=== PATIENT | male | born 1955 | race Caucasian/White ===

== ENCOUNTER 2020-03-21 10:07 | Emergency (ER) | payer OTHER ==
[2020-03-21 10:18] VITALS: RESP 18; TEMP 97.6
[2020-03-21] MEDS ORDERED: HYDROmorphone 0.5 MG/0.5 ML SYRINGE IVP STA (10:35)
[2020-03-21] MEDS ORDERED: KETOROLAC 15 MG/ML 1 ML VIAL IVP STA (10:35)
[2020-03-21] MEDS ORDERED: ONDANSETRON 4 MG/2 ML VIAL IVP STA (10:35)
[2020-03-21] MEDS ORDERED: SODIUM CHLORIDE 0.9% 2,000 ML IV STA (10:35)
[2020-03-21 11:29] LABS: Basophils # (A) 0.2 k/uL (0-0.2); Basophils % (A) 1 %; Eosinophils # (A) 0.3 k/uL (0-0.7); Eosinophils % (A) 2 %; HCT 50.4 % (39.0-53.0); HGB 17.4 gm/dL (13.0-17.5); Lymphocytes # (A) 2.3 k/uL (1.0-4.8); Lymphocytes % (A) 15 %; MCH 30.7 pg (25.0-35.0); MCHC 34.5 g/dL (31.0-37.0); MCV 88.8 fL (80.0-100.0); Mean Platelet Volume 7.7; Monocytes # (A) 0.9 k/uL (0-1.0); Monocytes % (A) 6 %; Neutrophils # (A) 11.6 k/uL (1.3-7.7); Neutrophils % (A) 75 %; Platelet Count 265 k/uL (150-450); RBC 5.68 m/uL (4.30-5.90); RDW 12.8 % (11.5-15.5); WBC 15.6 k/uL (3.8-10.6)
[2020-03-21 11:40] LABS: Calcium 9.2 mg/dL (8.4-10.2); Potassium 4.5 mmol/L (3.5-5.1); Total Bilirubin 0.8 mg/dL (0.2-1.3); Total Protein 6.7 g/dL (6.3-8.2)
--- NOTE | 2020-03-21 11:53 | CT ---
EXAMINATION TYPE: CT abdomen pelvis wo con DATE OF EXAM: 03/21/2020 COMPARISON: None INDICATION: Lt flank pain DLP: 600.8 mGycm, Automated exposure control for dose reduction was used. CONTRAST: 0 mL of Isovue 300. Study performed without Oral Contrast TECHNIQUE: Axial images were obtained from above the diaphragm to the pubic rami in the axial plane a t 5 mm thick sections. Reconstructed images are reviewed on the computer in the coronal plane. FINDINGS: Limited CT sections are obtained the lung bases. The lung bases are clear. CT ABDOMEN: Liver: Normal Spleen: Normal Pancreas: Normal Adrenal glands: The adrenal glands are normal. Gallbladder: Normal Kidneys: No masses are evident. There is a moderate left hydronephrosis No cysts are present. There is a 0.5 cm obstructing proximal left ureteral pelvic junction stone. No hydroureter is evident. Aorta: Vascular calcification is within the aorta. Inferior vena cava: Normal. CT PELVIS: Beam hardening artifact from left hip prosthesis is present. Loops of bowel within the abdomen and pelvis are normal. Study is without oral contrast limiting bowel evaluation. Appendix: Normal as visualized. Urinary bladder: Normal. Genitourinary structures: Prostate is prominent and contains calcification Osseous structures: No suspicious lytic or sclerotic lesions. Facet degenerative changes are within t he lumbar spine. IMPRESSIONS: 1. 0.5 cm obstructing proximal left ureteral vesicle junction stone with moderate left hydronephrosi s
[2020-03-21] MEDS ORDERED: TAMSULOSIN 0.4 MG CAP.ER.24H PO STA (12:09)
--- NOTE | 2020-03-21 12:09 | ED ---
Back Pain HPI - General Chief Complaint: Back Pain/Injury Stated Complaint: kidney/back pain Time Seen by Provider: 03/21/20 10:32 Source: patient, RN notes reviewed Limitations: no limitations - History of Present Illness Initial Comments: This a 65-year-old male presents emergency from chief complaint of left flank pain. Patient states his started this morning. Patient states it was sudden onset of pain nothing makes the pain feel better or worse. Patient's had severe nausea vomiting. Patient states she's has no history kidney stones he's never had any like this in the past. Denies any trauma no dysuria no noted hematuria or frequency no stiff and diarrhea constipation states he did have a bowel movement this morning which did not change his symptoms. Patient has normal drug ALLERGIES. - Related Data Home Medications Medication Instructions Recorded Confirmed Cholecalciferol [Vitamin D3 (25 2,000 unit PO DAILY 03/21/20 03/21/20 Mcg = 1000 Iu)] Famotidine 40 mg PO HS 03/21/20 03/21/20 Glucosam/Jamir-Msm1/C/Kahlil/Bosw 2 tab PO DAILY 03/21/20 03/21/20 [Fktxoiiorlh-Jageocmxeuy-ELY Tb] Vit C/E/Zn/Coppr/Lutein/Zeaxan 2 cap PO DAILY 03/21/20 03/21/20 [Preservision Areds 2 Softgel] Previous Rx's Medication Instructions Recorded HYDROcodone/APAP 7.5-325MG [[place] 1 tab PO Q6HR PRN 3 Days #12 tab 03/21/20 7.5-325] Ketorolac [Toradol] 10 mg PO Q8HR #15 tab 03/21/20 Ondansetron Odt [Zofran Odt] 4 mg PO Q8HR PRN #10 tab 03/21/20 Tamsulosin [Flomax] 0.4 mg PO DAILY #7 cap 03/21/20 Allergies Allergy/AdvReac Type Severity Reaction Status Date / Time No Known Allergies Allergy Verified 03/21/20 11:53 Review of Systems ROS Statement: Those systems with pertinent positive or pertinent negative responses have been documented in the HPI. ROS Other: All systems not noted in ROS Statement are negative. Past Medical History Past Medical History: No Reported History History of Any Multi-Drug Resistant Organisms: None Reported Past Surgical History: Orthopedic Surgery Past Psychological History: No Psychological Hx Reported Smoking Status: Never smoker Past Alcohol Use History: None Reported Past Drug Use History: None Reported General Exam Limitations: no limitations General appearance: alert, in no apparent distress Head exam: Present: atraumatic, normocephalic, normal inspection Eye exam: Present: normal appearance, PERRL, EOMI. Absent: scleral icterus, conjunctival injection, periorbital swelling ENT exam: Present: normal exam, normal oropharynx, mucous membranes moist Neck exam: Present: normal inspection, full ROM. Absent: tenderness, meningismus, lymphadenopathy Respiratory exam: Present: normal lung sounds bilaterally. Absent: respiratory distress, wheezes, rales, rhonchi, stridor Cardiovascular Exam: Present: regular rate, normal rhythm, normal heart sounds. Absent: systolic murmur, diastolic murmur, rubs, gallop, clicks GI/Abdominal exam: Present: soft, tenderness (Mild left-sided), normal bowel sergei nds. Absent: distended, guarding, rebound, rigid Back exam: Present: CVA tenderness (L). Absent: CVA tenderness (R) Neurological exam: Present: alert, oriented X3 Skin exam: Present: warm, dry, intact, normal color. Absent: rash Course Vital Signs 03/21/20 03/21/20 03/21/20 10:12 11:37 12:44 Temperature 97.6 F Pulse Rate 62 59 L 60 Respiratory 18 18 18 Rate Blood Pressure 194/109 142/82 127/71 O2 Sat by Pulse 96 99 98 Oximetry Medical Decision Making - Medical Decision Making 65-year-old presented for flank pain. Patient does have evidence of 5 mm UVJ stone. Patient's pain is improved. Patient be discharged in stable condition return parameters were discussed. - Lab Data Result diagrams: 03/21/20 11:11 03/21/20 11:11 Lab Results 03/21/20 03/21/20 03/21/20 Range/Units 11:11 11:11 12:53 WBC 15.6 H (3.8-10.6) k/uL RBC 5.68 (4.30-5.90) m/uL Hgb 17.4 (13.0-17.5) gm/dL Hct 50.4 (39.0-53.0) % MCV 88.8 (80.0-100.0) fL MCH 30.7 (25.0-35.0) pg MCHC 34.5 (31.0-37.0) g/dL RDW 12.8 (11.5-15.5) % Plt Count 265 (150-450) k/uL MPV 7.7 Neutrophils % 75 % Lymphocytes % 15 % Monocytes % 6 % Eosinophils % 2 % Basophils % 1 % Neutrophils # 11.6 H (1.3-7.7) k/uL Lymphocytes # 2.3 (1.0-4.8) k/uL Monocytes # 0.9 (0-1.0) k/uL Eosinophils # 0.3 (0-0.7) k/uL Basophils # 0.2 (0-0.2) k/uL Sodium 139 (137-145) mmol/L Potassium 4.5 (3.5-5.1) mmol/L Chloride 111 H (98-107) mmol/L Carbon Dioxide 21 L (22-30) mmol/L Anion Gap 7 mmol/L BUN 14 (9-20) mg/dL Creatinine 1.21 (0.66-1.25) mg/dL Est GFR (CKD-EPI)AfAm 74 (>60 ml/min/1.73 sqM) Est GFR (CKD-EPI)NonAf 64 (>60 ml/min/1.73 sqM) Glucose 117 H (74-99) mg/dL Calcium 9.2 (8.4-10.2) mg/dL Total Bilirubin 0.8 (0.2-1.3) mg/dL AST 21 (17-59) U/L ALT 17 (4-49) U/L Alkaline Phosphatase 68 (38-126) U/L Total Protein 6.7 (6.3-8.2) g/dL Albumin 4.0 (3.5-5.0) g/dL Amylase 83 (30-110) U/L Lipase 146 (23-300) U/L Urine Color Yellow Urine Appearance Clear (Clear) Urine pH 6.5 (5.0-8.0) Ur Specific [place] 1.016 (1.001-1.035) Urine Protein Negative (Negative) Urine Glucose (UA) Negative (Negative) Urine Ketones Negative (Negative) Urine Blood Moderate H (Negative) Urine Nitrite Negative (Negative) Urine Bilirubin Negative (Negative) Urine Urobilinogen <2.0 (<2.0) mg/dL Ur Leukocyte Esterase Negative (Negative) Urine RBC 119 H (0-5) /hpf Urine WBC 3 (0-5) /hpf Urine Bacteria Rare H (None) /hpf Hyaline Casts 1 (0-2) /lpf Urine Mucus Rare H (None) /hpf Disposition Clinical Impression: Ureteral calculi, Nausea & vomiting Disposition: HOME SELF-CARE Condition: Stable Instructions (If sedation given, give patient instructions): Kidney Stones (ED) Additional Instructions: Please return to the Emergency Department if symptoms worsen or any other concerns. Prescriptions: Tamsulosin [Flomax] 0.4 mg PO DAILY #7 cap HYDROcodone/APAP 7.5-325MG [[place] 7.5-325] 1 tab PO Q6HR PRN 3 Days #12 tab PRN Reason: Pain Ketorolac [Toradol] 10 mg PO Q8HR #15 tab Ondansetron Odt [Zofran Odt] 4 mg PO Q8HR PRN #10 tab PRN Reason: Nausea Is patient prescribed a controlled substance at d/c from ED?: Yes When asked, does pt state using other controlled substances?: No If prescribed controlled substance>3 days was MAPS reviewed?: Prescribed <3 Days If opioid is for acute pain is fill amount 7 days or less?: Yes If Rx opioid, was Start Talking consent form obtained?: Yes Referrals: Antwan Baker MD [Primary Care Provider] - 1-2 days Quincy Pozo MD [STAFF PHYSICIAN] - 1-2 days Time of Disposition: 13:24
[2020-03-21 12:45] VITALS: BP 127/71; PULSE 60
[2020-03-21 13:14] LABS: Appearance,Urine Clear (Clear); Bacteria,Urine Rare /hpf; Bilirubin,Urine Negative (Negative); Blood,Urine Moderate (Negative); Color,Urine Yellow; Glucose,Urine (UA) Negative (Negative); Hyaline Casts,Urine 1 /lpf (0-2); Ketones,Urine Negative (Negative); Leukocyte Esterase,Urine Negative (Negative); Mucus,Urine Rare /hpf; Nitrite,Urine Negative (Negative); PH, Urine 6.5 (5.0-8.0); Protein,Urine Negative (Negative); RBC,Urine 119 /hpf (0-5); Specific Gravity,Urine 1.016 (1.001-1.035); Urobilinogen,Urine <2.0 mg/dL (<2.0); WBC,Urine 3 /hpf (0-5)
[2020-03-21] MEDS ORDERED: HYDROcodone/APAP 7.5-325MG 1 EACH TAB PO ONE (13:27)
== END 2020-03-21 14:02 | disposition home or self-care (01) ==
LOC: EC 10:07
DX: N20.1 Calculus of ureter (principal); Z79.899 Other long term (current) drug therapy
CPT/HCPCS: 36415; 80053; 82150; 83690; 85025; 81001; 74176; 99284; 96374; 96375 ×2; 96361 ×2; J2405; J1885; J1170

== ENCOUNTER 2020-10-27 13:33 | Emergency (ER) | payer OTHER ==
[2020-10-27 13:38] VITALS: RESP 18; TEMP 97.4
[2020-10-27] MEDS ORDERED: HYDROmorphone 1 MG/ML 1 ML SYRINGE IVP STA (13:53)
[2020-10-27] MEDS ORDERED: ONDANSETRON 4 MG/2 ML VIAL IVP STA (13:53)
[2020-10-27] MEDS ORDERED: KETOROLAC 15 MG/ML 1 ML VIAL IVP STA (13:53)
[2020-10-27] MEDS ORDERED: SODIUM CHLORIDE 0.9% 1,000 ML IV STA (13:53)
--- NOTE | 2020-10-27 13:54 | ED ---
Abdominal Pain HPI - General Chief Complaint: Abdominal Pain Stated Complaint: Kidney Stones Time Seen by Provider: 10/27/20 14:03 Source: patient Mode of arrival: ambulatory Limitations: physical limitation - History of Present Illness Initial Comments: 65-year-old male past medical history of kidney stones presents emergency room with reported left-sided flank pain. Patient awoke this morning with 10/10 left flank pain which radiates around to his groin. Reports a history of similar pain in the past. Was seen here in March for similar complaint was diagnosed with a kidney stone. Was discharged home at that time a Kinards. States still had his prescription for the Kinards at home and therefore took one prior to coming to the emergency room. Patient also took a Zofran for nausea as he began having vomiting due to the significance of the pain. He denies hematuria, dysuria or increased frequency of voiding. Denies any anterior abdominal pain. No bowel complaints. Denies any chest pain or shortness of breath. No numbness, tingling or weakness in his legs. No alleviating, precipitating or modifying factors - Related Data Home Medications Medication Instructions Recorded Confirmed Cholecalciferol [Vitamin D3 (25 2,000 unit PO DAILY 03/21/20 03/21/20 Mcg = 1000 Iu)] Famotidine 40 mg PO HS 03/21/20 03/21/20 Glucosam/Jamir-Msm1/C/Kahlil/Bosw 2 tab PO DAILY 03/21/20 03/21/20 [Almeqnhbmjk-Twlexjpxtgr-JBP Tb] Vit C/E/Zn/Coppr/Lutein/Zeaxan 2 cap PO DAILY 03/21/20 03/21/20 [Preservision Areds 2 Softgel] Previous Rx's Medication Instructions Recorded HYDROcodone/APAP 7.5-325MG [[place] 1 tab PO Q6HR PRN 3 Days #12 tab 03/21/20 7.5-325] Ketorolac [Toradol] 10 mg PO Q8HR #15 tab 03/21/20 Ondansetron Odt [Zofran Odt] 4 mg PO Q8HR PRN #10 tab 03/21/20 Tamsulosin [Flomax] 0.4 mg PO DAILY #7 cap 03/21/20 HYDROcodone/APAP 5-325MG [[place] 5] 1 each PO Q6HR PRN #12 tab 10/27/20 Ketorolac [Toradol] 10 mg PO Q8HR #15 tab 10/27/20 Ondansetron Odt [Zofran Odt] 4 mg PO Q8HR PRN #15 tab 10/27/20 Tamsulosin [Flomax] 0.4 mg PO DAILY #7 cap 10/27/20 Allergies Allergy/AdvReac Type Severity Reaction Status Date / Time No Known Allergies Allergy Verified 10/27/20 13:39 Review of Systems ROS Statement: Those systems with pertinent positive or pertinent negative responses have been documented in the HPI. ROS Other: All systems not noted in ROS Statement are negative. Past Medical History Past Medical History: No Reported History Additional Past Medical History / Comment(s): KIDNEY STONES History of Any Multi-Drug Resistant Organisms: None Reported Past Surgical History: Orthopedic Surgery Past Psychological History: No Psychological Hx Reported Smoking Status: Never smoker Past Alcohol Use History: None Reported Past Drug Use History: None Reported General Exam Limitations: physical limitation General appearance: alert, in distress Head exam: Present: atraumatic, normocephalic, normal inspection Eye exam: Present: normal appearance, PERRL, EOMI. Absent: scleral icterus, conjunctival injection, periorbital swelling ENT exam: Present: normal exam, mucous membranes moist Neck exam: Present: normal inspection. Absent: tenderness, meningismus, lymphadenopathy Respiratory exam: Present: normal lung sounds bilaterally. Absent: respiratory distress, wheezes, rales, rhonchi, stridor Cardiovascular Exam: Present: regular rate, normal rhythm, normal heart sounds. Absent: systolic murmur, diastolic murmur, rubs, gallop, clicks GI/Abdominal exam: Present: soft, normal bowel sounds. Absent: distended, tenderness, guarding, rebound, rigid Extremities exam: Present: normal inspection, full ROM, normal capillary refill. Absent: tenderness, pedal edema, joint swelling, calf tenderness Back exam: Present: CVA tenderness (L) Neurological exam: Present: alert, oriented X3, CN II-XII intact Psychiatric exam: Present: normal affect, normal mood Skin exam: Present: warm, dry, intact, normal color. Absent: rash Course Vital Signs 10/27/20 10/27/20 10/27/20 13:35 14:31 15:40 Temperature 97.4 F L Pulse Rate 62 55 L 52 L Respiratory 18 18 18 Rate Blood Pressure 189/94 155/85 146/72 O2 Sat by Pulse 97 100 99 Oximetry Medical Decision Making - Medical Decision Making Upon arrival the patient was placed into room 15. He is actively vomiting in the trashcan. IV is place the patient was given 1 mg of Dilaudid and 15 mg of Toradol. Laboratory studies are conducted. Liter bolus of saline administered. Patient went over for a CT of his abdomen and pelvis. Laboratory studies reveal a white count 12.2. Urinalysis demonstrates large blood, greater than 182 red blood cells with rare bacteria. CT of the patient's abdomen and pelvis demonstrates a 6 mm stone at the UVJ. Associated hydronephrosis and hydr oureter. The patient is reevaluated and has had complete resolution of his pain. I did discuss diagnosis, different treatment options. The patient will be discharged home at this time with Toradol and Kinards for pain control. He will also be given Flomax and Zofran. Patient is to take the medications as directed. Strain all urine. He is given follow-up information for urology on- call. Return to the emergency room for any new or worsening symptoms. Strict return parameters discussed. Patient discharged home in stable condition - Lab Data Result diagrams: 10/27/20 14:03 10/27/20 14:03 Lab Results 10/27/20 10/27/20 10/27/20 Range/Units 14:03 14:03 14:03 WBC 12.2 H (3.8-10.6) k/uL RBC 5.77 (4.30-5.90) m/uL Hgb 17.9 H (13.0-17.5) gm/dL Hct 50.9 (39.0-53.0) % MCV 88.2 (80.0-100.0) fL MCH 31.0 (25.0-35.0) pg MCHC 35.2 (31.0-37.0) g/dL RDW 12.9 (11.5-15.5) % Plt Count 271 (150-450) k/uL MPV 7.4 Neutrophils % 69 % Lymphocytes % 19 % Monocytes % 6 % Eosinophils % 3 % Basophils % 1 % Neutrophils # 8.4 H (1.3-7.7) k/uL Lymphocytes # 2.3 (1.0-4.8) k/uL Monocytes # 0.8 (0-1.0) k/uL Eosinophils # 0.3 (0-0.7) k/uL Basophils # 0.1 (0-0.2) k/uL Sodium 140 (137-145) mmol/L Potassium 4.1 (3.5-5.1) mmol/L Chloride 109 H (98-107) mmol/L Carbon Dioxide 20 L (22-30) mmol/L Anion Gap 11 mmol/L BUN 15 (9-20) mg/dL Creatinine 1.03 (0.66-1.25) mg/dL Est GFR (CKD-EPI)AfAm 89 (>60 ml/min/1.73 sqM) Est GFR (CKD-EPI)NonAf 77 (>60 ml/min/1.73 sqM) Glucose 132 H (74-99) mg/dL Calcium 9.4 (8.4-10.2) mg/dL Total Bilirubin 0.6 (0.2-1.3) mg/dL AST 28 (17-59) U/L ALT 15 (4-49) U/L Alkaline Phosphatase 86 (38-126) U/L Total Protein 7.2 (6.3-8.2) g/dL Albumin 4.5 (3.5-5.0) g/dL Lipase 239 (23-300) U/L Urine Color Yellow Urine Appearance Clear (Clear) Urine pH 6.0 (5.0-8.0) Ur Specific [place] 1.016 (1.001-1.035) Urine Protein Trace H (Negative) Urine Glucose (UA) Negative (Negative) Urine Ketones Negative (Negative) Urine Blood Large H (Negative) Urine Nitrite Negative (Negative) Urine Bilirubin Negative (Negative) Urine Urobilinogen <2.0 (<2.0) mg/dL Ur Leukocyte Esterase Negative (Negative) Urine RBC >182 H (0-5) /hpf Urine WBC 2 (0-5) /hpf Urine Bacteria Rare H (None) /hpf Disposition Clinical Impression: Ureteral stone with hydronephrosis Disposition: HOME SELF-CARE Condition: Stable Instructions (If sedation given, give patient instructions): Kidney Stones (ED) Additional Instructions: Please follow-up with urologist in regards to your symptoms. Strain all urine. Return to the emergency room for any new or worsening symptoms to include fevers or inability to urinate Prescriptions: Tamsulosin [Flomax] 0.4 mg PO DAILY #7 cap HYDROcodone/APAP 5-325MG [[place] 5] 1 each PO Q6HR PRN #12 tab PRN Reason: Pain Ketorolac [Toradol] 10 mg PO Q8HR #15 tab Ondansetron Odt [Zofran Odt] 4 mg PO Q8HR PRN #15 tab PRN Reason: Nausea Is patient prescribed a controlled substance at d/c from ED?: Yes When asked, does pt state using other controlled substances?: No If prescribed controlled substance>3 days was MAPS reviewed?: Prescribed <3 Days If opioid is for acute pain is fill amount 7 days or less?: Yes If Rx opioid, was Start Talking consent form obtained?: Yes Referrals: Antwan Baker MD [Primary Care Provider] - 1-2 days Ephraim Vargas MD [STAFF PHYSICIAN] - 1-2 days Time of Disposition: 15:44
[2020-10-27 14:13] LABS: Basophils # (A) 0.1 k/uL (0-0.2); Basophils % (A) 1 %; Eosinophils # (A) 0.3 k/uL (0-0.7); Eosinophils % (A) 3 %; HCT 50.9 % (39.0-53.0); HGB 17.9 gm/dL (13.0-17.5); Lymphocytes # (A) 2.3 k/uL (1.0-4.8); Lymphocytes % (A) 19 %; MCHC 35.2 g/dL (31.0-37.0); MCV 88.2 fL (80.0-100.0); Mean Platelet Volume 7.4; Monocytes # (A) 0.8 k/uL (0-1.0); Monocytes % (A) 6 %; Neutrophils # (A) 8.4 k/uL (1.3-7.7); Neutrophils % (A) 69 %; Platelet Count 271 k/uL (150-450); RBC 5.77 m/uL (4.30-5.90); RDW 12.9 % (11.5-15.5); WBC 12.2 k/uL (3.8-10.6)
[2020-10-27 14:25] LABS: Albumin 4.5 g/dL (3.5-5.0); Calcium 9.4 mg/dL (8.4-10.2); Potassium 4.1 mmol/L (3.5-5.1); Total Bilirubin 0.6 mg/dL (0.2-1.3); Total Protein 7.2 g/dL (6.3-8.2)
[2020-10-27 14:29] LABS: Appearance,Urine Clear (Clear); Bacteria,Urine Rare /hpf; Bilirubin,Urine Negative (Negative); Blood,Urine Large (Negative); Color,Urine Yellow; Glucose,Urine (UA) Negative (Negative); Ketones,Urine Negative (Negative); Leukocyte Esterase,Urine Negative (Negative); Nitrite,Urine Negative (Negative); Protein,Urine Trace (Negative); RBC,Urine >182 /hpf (0-5); Specific Gravity,Urine 1.016 (1.001-1.035); Urobilinogen,Urine <2.0 mg/dL (<2.0); WBC,Urine 2 /hpf (0-5)
--- NOTE | 2020-10-27 14:34 | CT ---
EXAMINATION TYPE: CT abdomen pelvis wo con DATE OF EXAM: 10/27/2020 COMPARISON: 03/21/2020 HISTORY: Pain. Left side pain. CT DLP: mGycm Automated exposure control for dose reduction was used. Images obtained from the diaphragm to the floor the pelvis with no contrast. Lung bases are clear. There is pulmonary hyperinflation and flattening of the diaphragm. Heart size i s normal. There is no pericardial effusion. Liver spleen stomach pancreas gallbladder appear normal. The bile ducts are not dilated. There is no adrenal mass. There is left-sided hydronephrosis and hydroureter. There is 6 mm calculus at the left ureteral vesicle junction. Kidneys have normal size. Right ureter appears normal. The keyla dder distends smoothly. There is minimal prostate calcification. There is left hip prosthesis. There is no free fluid in the pelvis. There is no mesenteric edema. There is no ascites or free air. There is no bowel obstruction. Appendi x is not seen. The lumbar vertebra have normal alignment. There is narrowing at L2-3 disc with spur formation. Poste rior elements are intact. There is no compression fracture. The bony pelvis is intact. IMPRESSION: Obstructing calculus at the ureterovesical junction has migrated compared to last exam of 03/21/2020 f rom the renal pelvis. Calculus slightly increased in size. COPD.
[2020-10-27 15:40] VITALS: BP 146/72; PULSE 52
== END 2020-10-27 16:06 | disposition home or self-care (01) ==
LOC: EC 13:33
DX: N13.2 Hydronephrosis with renal and ureteral calculous obstruction (principal); J44.9 Chronic obstructive pulmonary disease, unspecified
CPT/HCPCS: 36415; 80053; 83690; 85025; 81001; 74176; 99284; 96374; 96375 ×2; 96361 ×2; J2405; J1170; J1885

== ENCOUNTER 2020-11-16 11:15 | Day surgery (SDC) | payer OTHER ==
[2020-11-13 14:33] VITALS: BMI 24.4
--- NOTE | 2020-11-15 09:08 | P.HPIHPCON ---
History of Present Illness H&P Date: 11/15/20 Chief Complaint: Left ureteral stone This is a 65-year-old male with history of a 6 mm left-sided distal ureteral stone, he symptomatic from his stone. Surgical options were discussed with him. Discussed with him the option of doing a left-sided ureteroscopy with holmium laser lithotripsy. Discussed with him the risk which includes but not limited to bleeding, infection, injury to the ureter. Discussed with him risk from anesthesia. He understood all the risk and agreed to proceed with left-sided ureteroscopy, with holmium laser lithotripsy, stone basketing and stent placement Consent for Procedure: I have explained the operation/procedure to the patient, including the risks, benefits, side effects, alternative therapies (including not receiving the proposed treatment or service), the likelihood of the patient achieving his/her goals, and potential recuperation problems for the procedure/sedation/analgesia, as well as any blood products, if indicated. I also explained to the patient the risks, benefits and side effects of the alternatives, as well as the risks related to not receiving the proposed procedure, care, treatment, or services. Past Medical History Past Medical History: GERD/Reflux Additional Past Medical History / Comment(s): KIDNEY STONES History of Any Multi-Drug Resistant Organisms: None Reported Past Surgical History: Joint Replacement Additional Past Surgical History / Comment(s): lt hip replacement, rotator cuff repair Past Anesthesia/Blood Transfusion Reactions: No Reported Reaction, Motion Sickness Smoking Status: Never smoker - Past Family History Mother Family Medical History: No Reported History Medications and Allergies Home Medications Medication Instructions Recorded Confirmed Type Cholecalciferol [Vitamin D3 (25 2,000 unit PO DAILY 03/21/20 11/13/20 History Mcg = 1000 Iu)] Famotidine 40 mg PO HS 03/21/20 11/13/20 History Glucosam/Jamir-Msm1/C/Kahlil/Bosw 2 tab PO DAILY 03/21/20 11/13/20 History [Qiggdtftkxj-Knphdjuhcuj-OUH Tb] HYDROcodone/APAP 7.5-325MG [[place] 1 tab PO Q6HR PRN 3 Days #12 tab 03/21/20 11/13/20 Rx 7.5-325] Vit C/E/Zn/Coppr/Lutein/Zeaxan 2 cap PO DAILY 03/21/20 11/13/20 History [Preservision Areds 2 Softgel] Ondansetron Odt [Zofran Odt] 4 mg PO Q8HR PRN #15 tab 10/27/20 11/13/20 Rx Tamsulosin [Flomax] 0.4 mg PO DAILY #7 cap 10/27/20 11/13/20 Rx Ketorolac [Toradol] 10 mg PO Q8HR PRN 11/13/20 11/13/20 History Loratadine [Claritin] 10 mg PO HS 11/13/20 11/13/20 History Allergies Allergy/AdvReac Type Severity Reaction Status Date / Time No Known Allergies Allergy Verified 11/13/20 14:24 Surgical - Exam - General well developed, well nourished, no distress, moderate pain - Eyes PERRL, normal ocular movement - ENT normal nares, normal mucosa - Respiratory normal expansion, normal respiratory effort - Abdomen Abdomen: soft, non tender Assessment and Plan Assessment: OR for left-sided ureteroscopy, with holmium laser lithotripsy stone basketing and stent placement
--- NOTE | 2020-11-16 11:33 | XR ---
EXAMINATION TYPE: XR KUB DATE OF EXAM: 11/16/2020 COMPARISON: CT 10/27/2020 HISTORY: Renal stones TECHNIQUE: One view abdominal series FINDINGS: The osseous structures are intact. The bowel gas pattern is nonspecific. Lung bases are clear. Ther e is a 5 mm calculus overlying the region of the bladder centrally. Postsurgical change involving the left hip with arthropathy of the right hip. No suspicious calcifications overlying the renal outline s. Degenerative changes spine. IMPRESSION: 1. No suspicious calcifications overlying the renal outline. 2. There is a 5 mm calculus centrally in the pelvis which may represent the ureteral calculus passing into the bladder.
[2020-11-16] MEDS ORDERED: ONDANSETRON 4 MG/2 ML VIAL ONE (12:04)
[2020-11-16] MEDS ORDERED: LIDOCAINE 1% (10MG/ML) FOR IV START INTRADERMA ONE (12:05)
[2020-11-16] MEDS ORDERED: LACTATED RINGERS 1,000 ML IV ONE ×2 (12:05→15:48)
[2020-11-16] MEDS ORDERED: DEXAMETHASONE SOD PHOSPHATE 4 MG/ML 1 ML VIAL IV ONE (12:07)
[2020-11-16] MEDS ORDERED: LIDOCAINE 1% INJ 10MG/ML (20 ML MDV) ONE (15:08)
[2020-11-16] MEDS ORDERED: PROPOFOL 10 MG/ML 20 ML VIAL IV ONE (15:08)
[2020-11-16] MEDS ORDERED: fentaNYL (PF) 50 MCG/ML 2 ML AMP ONE (15:08)
[2020-11-16] MEDS ORDERED: MIDAZOLAM 2 MG/2 ML VIAL ONE (15:08)
[2020-11-16] MEDS ORDERED: IOPAMIDOL-370 50ML BTL IRRIGATION ONE (15:36)
--- NOTE | 2020-11-16 15:54 | P.OP ---
Date of Procedure: 11/16/20 Preoperative Diagnosis: Left ureteral stone Postoperative Diagnosis: Same Procedure(s) Performed: Cystoscopy, left ureteroscopy, balloon dilation retrograde pyelogram, and removal of a bladder stone Implants: None Anesthesia: YESSI Surgeon: Riky Schmidt Estimated Blood Loss (ml): 1 Pathology: none sent (bladder stone) Condition: stable Disposition: PACU Indications for Procedure: This is a 65-year-old male with history of a 6 mm left-sided distal ureteral stone, he symptomatic from his stone. Surgical options were discussed with him. Discussed with him the option of doing a left-sided ureteroscopy with holmium laser lithotripsy. Discussed with him the risk which includes but not limited to bleeding, infection, injury to the ureter. Discussed with him risk from anesthesia. He understood all the risk and agreed to proceed with left-sided ureteroscopy, with holmium laser lithotripsy, stone basketing and stent placement Operative Findings: The left ureteral stone has passed into the bladder Description of Procedure: Patient was brought to the operating room, general anesthesia was induced. He was prepped and draped in sterile fashion and placed in dorsal lithotomy position. Cystoscopy fitted with a 21-[place] sheath was inserted per urethra, cystoscopy was performed which showed no abnormalities within the bladder. Of note patient had a moderately enlarged prostate. A stone was visualized in the bladder and irrigated out, the left ureteral orifice was edematous, consistent with recently passed stone. At this time the ureteroscope was withdrawn and a semirigid ureteroscope was inserted. I attempted to advance the ureteroscope through the ureteral orifice but patient had narrowing of the ureteral orifice. At this time the wire was advanced through the ureteroscope and the ureteroscope was withdrawn with the wire in place. Next the ureteral balloon dilator was passed over the wire, and the left UVJ was dilated under fluoroscopy. Next the semirigid ureteroscope was reinserted and advanced up the left ureteral orifice, the ureteroscope was advanced all the way up to the proximal ureter there was no evidence of stone. Retrograde pyelogram was performed through the scope which showed no filling defect within the kidney. Next pullback ureteroscopy was performed showed no ureteral stones or injury to the ureter. The bladder was emptied at the end of the case, there was minimal edema at the ureteral orifice, thus no stent was placed. Patient tolerated the procedure well was taken to PACU in stable condition
[2020-11-16 15:56] VITALS: TEMP 97.3
[2020-11-16 16:04] VITALS: RESP 16
[2020-11-16 16:56] VITALS: BP 157/91; PULSE 52
--- NOTE | 2020-11-19 12:52 | FL ---
EXAMINATION TYPE: FL urography retrograde DATE OF EXAM: 11/16/2020 COMPARISON: NONE HISTORY: Fluoroscopy TECHNIQUE: Fluoroscopy. FINDINGS: Fluoroscopic guidance was provided during procedure of 6 seconds. IMPRESSION: As Above.
== END 2020-11-16 17:19 | disposition home or self-care (01) ==
LOC: OR 11:15
PROVIDERS: ATTEND Urology
DX: N20.2 Calculus of kidney with calculus of ureter (principal); K21.9 Gastro-esophageal reflux disease without esophagitis
CPT/HCPCS: 52351; 82365; 74420; 74018; J1100; J0690; J2405; Q9967

== ENCOUNTER → 2022-02-10 | Outpatient (CLI) | payer OTHER ==
[2022-02-10 10:51] VITALS: BP 131/87; PULSE 61; RESP 18; TEMP 97.9
--- NOTE | 2022-02-10 14:43 | P.PAINPG ---
PQRS Measure Charge Sheet Comment: HISTORY OF PRESENT ILLNESS: 66 yr old male as a referral from [facility] presents today w severe and chronic LBP secondary to spondylosis, DDD and facet arthropathy without myelopathy for evaluation. Pt states his pain level is currently at 6/10 in intensity, constant, localized in the R mid to lower lumbar spine, burning in character w shooting towards the R hip and RLE. Pain is provoked by standing/ bending/ lifting. Pain is alleviated by medications (Lyrica, Motrin, Tylenol), PT 5 weeks which ended January 2022, chiropractic treatments for years but stopped in November 2021 due to MRI results, laying supine, use of a TENS unit in PT, repositioning and rest. PMH: GERD, Nephrolithiasis PSH: Uteroscopy/Lithotripsy/Stent Placement, L Hip Replacement, RCT Repair SH: Negative x 3 FH: Non contributory All: NKDA Meds: See list REVIEW OF ORGAN SYSTEMS: CONSTITUTIONAL: No fevers or chills. No recent weight loss. NEUROLOGICAL: + numbness and tingling along the distal extremities. No seizure disorders or headaches. MUSCULOSKELETAL: + pain PSYCHIATRIC: Denies current depression or suicidal thoughts. Physical Examinations : Constitutional : Cooperative , not in acute distress . Neurologic : Cranial nerve II to XII intact. No focal neurological deficits. Psychiatric : alert & oriented x 3. Matching mood & appropriate affect. Judgment & insight intact. Musculoskeletal : Cervical Spine Motor strength in the deltoid and biceps: Normal right side. Normal Left side Motor strength biceps and the wrist extensors: Normal right side . Normal left side Motor strength in the triceps muscle: Normal right side. Normal left side Deep tendon reflexes: Normal at the biceps. Normal at Brachioradialis. Normal at triceps Vertebral body tenderness to deep palpation over Cervical facet loading test: positive bilaterally Spurling test: positive bilaterally Neck distraction test: positive bilaterally Tylor sign: positive bilaterally Lumbar spine Motor strength lower extremities ,thigh and legs 5/5 Right side , 5/5 Left side Deep tendon reflexes : Normal Knee Jerk. Normal Ankle Jerk Vertebral body tenderness over L4 Lumbar facet Loading Test: positive Right / positive Left Range of motion of the lumbar spine Flexion 30 degrees, extension 10 degrees Straight Leg Raise test: Left/ Right positive at degree Purnima test: positive right / positive left. Severe tenderness over the Sacroiliac joint on the Right / Left sides Robertolen test: positive bilaterally Seated flexion test: positive bilaterally. Sacral spine : Severe tenderness over the Sacroiliac joint: right side / left side Range of motion: Flexion of the lumbar spine <60 degrees Range of motion: Extension of the lumbar spine <20 degrees Gaenslen's Test positive Sarabjit's Test positive Purnima test: positive right side / left side Thigh Thrust Test Sacral Thrust Test Imaging: MRI without contrast of the lumbar spine from 01/24/22 reviewed Assessment/ Plan : #Spondylosis, lumbar DDD Recommendation of R TF ERIN of 3L4. May need a series of injections, up to 3 within a six-month timeframe, for optimal pain relief. Risks, benefits of proced ure discussed and patient verbalized understanding. Admits to anti- coagulant use or medical history of diabetes. Protocol for discontinuation/ continuation of medications jacqui procedure discussed. All questions answered. I have spent greater than 30 minutes on patient care today. Dr Junior was available by phone for the evaluation of this patient. The time was used to review the medical records including relevant urine studies and Prescription history (MAPs), review of the available imaging, evaluation and examination of the patient, coordination of care with the medical staff and if applicable referring physicians, as well as creation of the medical record Home Medications: Ambulatory Orders Cholecalciferol [Vitamin D3 (25 Mcg = 1000 Iu)] 2,000 unit PO DAILY 03/21/20 Famotidine 40 mg PO HS 03/21/20 Glucosam/Jamir-Msm1/C/Kahlil/Bosw [Updimydfrri-Eutkrtuhabi-KMW Tb] 2 tab PO DAILY 03/21/20 HYDROcodone/APAP 7.5-325MG [[place] 7.5-325] 1 tab PO Q6HR PRN 3 Days #12 tab 03/21/20 Vit C/E/Zn/Coppr/Lutein/Zeaxan [Preservision Areds 2 Softgel] 2 cap PO DAILY 03/21/20 Ondansetron Odt [Zofran Odt] 4 mg PO Q8HR PRN #15 tab 10/27/20 Tamsulosin [Flomax] 0.4 mg PO DAILY #7 cap 10/27/20 Ketorolac [Toradol] 10 mg PO Q8HR PRN 11/13/20 Loratadine [Claritin] 10 mg PO HS 11/13/20 Ibuprofen 600 mg PO Q8H PRN #15 tab 11/16/20 Controlled Substance Measures - Controlled Substance Measures Is patient prescribed a controlled substance at discharge?: No
== END ==
LOC: PNWHC3 09:58
PROVIDERS: ATTEND Specialist
DX: M47.816 Spondylosis without myelopathy or radiculopathy, lumbar region (principal); M51.36 Other intervertebral disc degeneration, lumbar region; Z79.01 Long term (current) use of anticoagulants; E11.9 Type 2 diabetes mellitus without complications; K21.9 Gastro-esophageal reflux disease without esophagitis
CPT/HCPCS: 99211

== ENCOUNTER 2022-02-25 10:34 | Day surgery (SDC) | payer MEDICARE, BC ==
[2022-02-25 11:09] VITALS: TEMP 97.9
[2022-02-25] MEDS ORDERED: LACTATED RINGERS 1,000 ML IV ONE (11:13)
[2022-02-25] MEDS ORDERED: IOPAMIDOL M200 10 ML VIAL ONE (11:17)
[2022-02-25] MEDS ORDERED: DEXAMETHASONE SOD PHOSPHATE 10 MG/ML 1 ML VIAL ONE (11:17)
[2022-02-25] MEDS ORDERED: MIDAZOLAM 2 MG/2 ML VIAL ONE (11:17)
[2022-02-25] MEDS ORDERED: fentaNYL (PF) 50 MCG/ML 2 ML AMP ONE (11:17)
--- NOTE | 2022-02-25 11:32 | P.PCN ---
Date of Procedure: 02/25/22 Description of Procedure: PREOPERATIVE DIAGNOSIS: Lumbar radiculopathy POSTOPERATIVE DIAGNOSIS: Lumbar radiculopathy PROCEDURE 1. Transforaminal epidural steroid injection under fluoroscopic guidance right L3-L4 2. Lumbar epidurogram IMAGING Fluoroscopy was used, images where saved to the medical record ANESTHESIA: Medication Administered by: Nurse Sedation Type: Moderate sedation requested by patient Sedation Supervision start time: 1118 Sedation Supervision end time: 1129 PROCEDURE DESCRIPTION / TECHNIQUE: The patient was seen and identified in the preoperative area. Risks, benefits, complications, and alternatives were discussed with the patient. The patient agreed to proceed with the procedure and signed the consent, vital signs were stable prior to the procedure. Patient was taken to the OR and time out was completed. The patient was placed in the prone position on procedure table and a pillow was placed under the abdomen to reduce lumbar lordosis. The lumbosacral area was prepped and draped in the usual sterile fashion. Vital signs were closely monitored during the procedure. Conscious sedation was used. Using oblique fluoroscopy, the chin of the "Jose A dog" at the pedicle and the skin and deeper tissues just below was localized with 1% lidocaine. Subsequently, a 22-gauge 3.5-inch spinal needle was advanced under a tunneled view fluoroscopic guidance just underneath the chin of the "Jose A dog". Under lateral fluoroscopy, the needle was then advanced to the posterior border interforaminal space. After negative aspiration of CSF and blood and with no paresthesias, 1 mL of Omnipaque-240 contrast dye was injected excellent epidurogram. Subsequently, a solution totalling 2ml of dexamethasone and PFNS was injected after negative aspiration (total of 10mg of dexamethasone was used). The needle was removed intact. COMPLICATIONS: None DISPOSITION: The patient was placed in a supine position and transferred to the recovery area in a stable condition for observation. There was no evidence of lower extremity motor or sensory deficit after the procedure. Patient was disc harged from the recovery room after meeting discharge criteria. Home discharge instructions were given to the patient by the staff. The patient was reexamined prior to discharge. Follow up as directed.
[2022-02-25] MEDS ORDERED: IV FLUID CONTINUATION 800 ML IV ONE (11:35)
--- NOTE | 2022-02-25 11:40 | FL ---
EXAMINATION TYPE: FL guided pain mgmt statistic DATE OF EXAM: 02/25/2022 HISTORY: Fluoroscopy time 6 seconds of fluoroscopy provided. IMPRESSION: 1. Fluoroscopy time.
[2022-02-25 11:52] VITALS: BP 155/75; PULSE 51; RESP 20
== END 2022-02-25 12:05 | disposition home or self-care (01) ==
LOC: ORPAIN 10:34
PROVIDERS: ATTEND Hospitalist
DX: M54.16 Radiculopathy, lumbar region (principal)
CPT/HCPCS: 99152; 64483; J2250; J1100; J3010; Q9966

== ENCOUNTER → 2022-03-10 | Outpatient (CLI) | payer MEDICARE, BC ==
[2022-03-10 11:39] VITALS: BP 140/84; PULSE 64; RESP 18; TEMP 98.1
--- NOTE | 2022-03-10 15:37 | P.PAINPG ---
PQRS Measure Charge Sheet Comment: A 67 yr old male w at side with a history of severe and chronic low back pain secondary to lumbar DDD and spondylosis with facet arthropathy without myelopathy presents today for evaluation s/p R TFESI L3-L4. Pt states he experienced 25% pain relief x 2 wks s/p procedure. Pain level is currently at 9 /10 in intensity, constant, localized in the R lower lumbar spine, squeezing in character w shooting towards his R hip, R thigh and R foot. Pain is provoked by chiropractic treatments, repositioning and sitting from a standing position. Pain is alleviated with PT x 6 wks in Nov 2021, TENS unit use in PT, heat, ice, meds (Lyrica from Dr Yoo), topicals, reclining and rest. Interventional pain procedures completed include R TFESI L3-L4 Patient is currently on Lyrica Patient denies any side effects of the medication(s), denies excessive drowsiness or sleepiness, denies suicidal ideation and reports that the current pain medication is helping to control the pain and improve activities of daily living. Patient denies any motor or sensory deficits. Patient denies any fever or night sweats, denies any change in the bowel movements or urination. Physical Examination: -Constitutional: Cooperative. Not in acute distress . - Neurologic: Cranial nerve II to XII intact. No focal neurological deficits. - Psychatric: Alert & oriented x 3. Matching mood & appropriate affect. Judgment and insight intact. - Musculoskeletal: Cervical spine: Muscle bulk/ tone/ strength in the bilateral upper extremities normal Vertebral body tenderness to palpation over Spurling test positive Distraction test positive Facet loading test positive Thoracic spine Muscle bulk / tone/ strength in the bilateral paraspinal muscles normal Vertebral body tender to palpation over Facet loading test positive Lumbar spine: Motor bulk/ tone/ strength lower extremities , thigh and legs : 5/5 Deep tendon reflexes : Normal Knee Jerk. Normal Ankle Jerk . Vertebral body tenderness to palpation over Lumbar Facet Loading Test positive Straight Leg Raise: positive at 30 degrees right side/ left side Gaenslen's Test positive Sacral spine : Severe tenderness over the Sacroiliac joint: right side / left side Range of motion: Flexion of the lumbar spine <60 degrees Range of motion: Extension of the lumbar spine <20 degrees Gaenslen's Test positive Purnima test: positive right side / left side Thigh Thrust Test Sacral Thrust Test Assessment and plan: Chronic low back pain secondary to lumbar DDD, spondylosis with facet arthropathy without myelopathy Pt did not receive sufficient pain relief w ERIN. He will continue Lyrica and explore surgical treatment options w Dr Yoo and may return to this clinic on an as needed basis. I have spent less than 30 minutes on patient care today. Dr Junior was available by phone for the evaluation of this patient. The time was used to review the medical records including relevant urine studies and Prescription history (MAPs), review of the available imaging, evaluation and examination of the patient, coordination of care with the medical staff and if applicable referring physicians, as well as creation of the medical record PQRS Narrative: Hx Alcohol Use (MH) No Home Medications: Ambulatory Orders Cholecalciferol [Vitamin D3 (25 Mcg = 1000 Iu)] 2,000 unit PO DAILY 03/21/20 Famotidine 40 mg PO HS 03/21/20 Glucosam/Jamir-Msm1/C/Kahlil/Bosw [Fchzpnqwycc-Nckdiitelnk-PWX Tb] 2 tab PO DAILY 03/21/20 Vit C/E/Zn/Coppr/Lutein/Zeaxan [Preservision Areds 2 Softgel] 2 cap PO DAILY 03/21/20 Loratadine [Claritin] 10 mg PO HS 11/13/20 Ibuprofen 600 mg PO Q8H PRN #15 tab 11/16/20 Pregabalin [Lyrica] 150 mg PO BID 02/25/22 Controlled Substance Measures - Controlled Substance Measures Is patient prescribed a controlled substance at discharge?: No
== END ==
LOC: PNWHC3 10:52
PROVIDERS: ATTEND Specialist
DX: M47.816 Spondylosis without myelopathy or radiculopathy, lumbar region (principal); M51.36 Other intervertebral disc degeneration, lumbar region; G89.29 Other chronic pain
CPT/HCPCS: 99211

== ENCOUNTER → 2022-08-07 | Outpatient (CLI) | payer MEDICARE, BC ==
[2022-08-07 13:38] VITALS: BP 160/86; PULSE 57; RESP 18; TEMP 97.7
--- NOTE | 2022-08-07 14:18 | P.PAINPG ---
PQRS Measure Charge Sheet Comment: A 67 yr old male w at side with a history of severe and chronic LBP secondary to lumbar DDD and spondylosis with facet arthropathy without myelopathy presents today for LBP evaluation. Pt states he was mistaken at his R TFESI L3-L4 follow up visit and that he actually experienced 70% pain relief x 3 wks s/p procedure. Pain level is provoked at 10/10 in intensity, constant, localized in the lumbar spine, sharp in character w shooting towards the RLE. Pain is provoked by standing/ walking for period of 15 min or more. Pain is alleviated with PT x 6 wks which ended in Apr 2022, heat, ice, massage x 1 session which provided little benefit, medications, topical, reclining and rest. Interventional pain procedures completed include R TFESI L3-L4 (2021) Patient is currently on Lyrica, Ibu Patient denies any side effects of the medication(s), denies excessive drowsiness or sleepiness, denies suicidal ideation and reports that the current pain medication is helping to control the pain and improve activities of daily living. Patient denies any motor or sensory deficits. Patient denies any fever or night sweats, denies any change in the bowel movements or urination. Physical Examination: -Constitutional: Cooperative. Not in acute distress . - Neurologic: Cranial nerve II to XII intact. No focal neurological deficits. - Psychatric: Alert & oriented x 3. Matching mood & appropriate affect. Judgment and insight intact. - Musculoskeletal: Cervical spine: Muscle bulk/ tone/ strength in the bilateral upper extremities normal Vertebral body tenderness to palpation over Spurling test positive Distraction test positive Facet loading test positive TTP Thoracic spine Muscle bulk / tone/ strength in the bilateral paraspinal muscles normal Vertebral body tender to palpation over Facet loading test positive TTP Lumbar spine: Motor bulk/ tone/ strength lower extremities , thigh and legs : 5/5 Deep tendon reflexes : Normal Knee Jerk. Normal Ankle Jerk . Vertebral body tenderness to palpation over L4 Lumbar Facet Loading Test positive Straight Leg Raise: positive at 30 degrees right side/ left side Gaenslen's Test positive Sacral spine : Severe tenderness over the Sacroiliac joint: right side / left side Range of motion: Flexion of the lumbar spine <60 degrees Range of motion: Extension of the lumbar spine <20 degrees Gaenslen's Test positive right side / left side Purnima test: positive right side / left side Thigh Thrust Test positive right side / left side Sacral Thrust Test positive right side / left side Assessment and plan: Chronic LBP secondary to lumbar DDD, spondylosis with facet arthropathy without myelopathy Recommendation of R TFESI L3-4 #2. May need a series of injections for optimal pain relief. Risks, benefits of procedure discussed and pt verbalized understanding. Admits to anticoagulant use or medical history of diabetes. Protocol for discontinuation/ continuation of medications jacqui procedure discussed. All questions answered. I have spent less than 30 minutes on patient care today. Dr Junior was available by phone for the evaluation of this patient. The time was used to review the medical records including relevant urine studies and Prescription history (MAPs), review of the available imaging, evaluation and examination of the patient, coordination of care with the medical staff and if applicable referring physicians, as well as creation of the medical record PQRS Narrative: Hx Alcohol Use (MH) No Home Medications: Ambulatory Orders Cholecalciferol [Vitamin D3 (25 Mcg = 1000 Iu)] 2,000 unit PO DAILY 03/21/20 Famotidine 40 mg PO HS 03/21/20 Glucosam/Jamir-Msm1/C/Kahlil/Bosw [Kbrocfirboe-Yvfoynptyzg-CDQ Tb] 2 tab PO DAILY 03/21/20 Vit C/E/Zn/Coppr/Lutein/Zeaxan [Preservision Areds 2 Softgel] 2 cap PO DAILY 03/21/20 Loratadine [Claritin] 10 mg PO HS 11/13/20 Ibuprofen 600 mg PO Q8H PRN #15 tab 11/16/20 Pregabalin [Lyrica] 150 mg PO BID 3 Days #6 cap 03/10/22 Controlled Substance Measures - Controlled Substance Measures Is patient prescribed a controlled substance at discharge?: No
== END ==
LOC: PNWHC3 13:04
PROVIDERS: ATTEND Specialist
DX: M51.16 Intervertebral disc disorders with radiculopathy, lumbar region (principal); M47.26 Other spondylosis with radiculopathy, lumbar region; M48.061 Spinal stenosis, lumbar region without neurogenic claudication; G89.29 Other chronic pain
CPT/HCPCS: 99211

== ENCOUNTER 2022-08-28 07:38 | Day surgery (SDC) | payer MEDICARE, BC ==
[2022-08-26 09:10] VITALS: BMI 24.4
[~2022-08-28 07:38] MED LIST: LACTATED RINGERS 1,000 ML IV SCH; LIDOCAINE 1% (10MG/ML) FOR IV START INTRADERMA PRN
[2022-08-28 08:11] VITALS: TEMP 98.1
[2022-08-28] MEDS ORDERED: MIDAZOLAM 2 MG/2 ML VIAL ONE (08:54)
[2022-08-28] MEDS ORDERED: ROPIVACAINE 5 MG/ML 20 ML AMPULE ONE (08:54)
[2022-08-28] MEDS ORDERED: methylPREDNISolone ACETATE 40 MG/ML 1 ML VIAL ONE (08:54)
[2022-08-28] MEDS ORDERED: fentaNYL (PF) 50 MCG/ML 2 ML AMP ONE (08:54)
[2022-08-28] MEDS ORDERED: LACTATED RINGERS 1,000 ML IV ONE (09:03)
--- NOTE | 2022-08-28 09:03 | P.PCN ---
Date of Procedure: 08/28/22 Procedure(s) Performed: PREOPERATIVE DIAGNOSIS : 1- Lumbar spondylosis with Facet Arthropathy without myelopathy . 2- Lumber degenerative disc disease POSTOPERATIVE DIAGNOSIS: 1- Lumbar spondylosis with Facet Arthropathy without myelopathy . 2- Lumber degenerative disc disease PROCEDURE: Diagnostic Right L4 , and L5 medial branch block under fluoroscopy guidance(fluoroscopy images available in the radiology Department ) ( To target the facet joint between Right L5-S1 )# 1st ANESTHESIA:, moderate sedation with intravenous Versed 2 mg and Fentanyl 50 mcg. Sedation was started at 0 854 ,ended at 0859 EBL: Minimal COMPLICATION: None PROCEDURE INDICATION: Chronic low back pain secondary to Facet arthropathy unresponsive to conservative treatment. PROCEDURE DESCRIPTION: the patient was seen and identified in the preop holding area , risks and benefits and possible complications of the procedure and alternative were discussed with the patient, and the patient agreed to proceed with the procedure and signed the consent and vital signs monitored during the procedure and fluoroscopy was used to maximize the benefit and accuracy of the needle placement, and sedation was given to decrease patient anxiety, patient was taken to the procedure room and placed in prone position vital signs monitored in the back prepped with chlorhexidine X3 then under strict sterile technique using a right oblique fluoroscopy ,the junction of the transverse process and the superior articulating process of the right L4 , and L5 vertebra which corresponding to the fluoroscopy image of the eye of the Jose A dog on the block side for the medial branches and subsequently , after local infiltration of skin and subcu tissuies with Ropivacaine 0.5 % , one mL at each level ,then 22-gauge Quincke-type needles , 2 needle was used , each one of them placed at the junction of the base of the transverse process and the superior articular process at the appropriate level, and the needle was advanced until the periosteum contacted, needle placement confirmed with AP oblique and lateral view and after appropriate needle placement confirmed, and after negative aspiration for heme and CSF and there was no paresthesia 1 mL of Ropivacaine 0.5% mixed with 20 mg Depo-Medrol , then half mL injected at each level after negative aspiration the needle subsequently removed . At the end of the procedure and the needles removed and a bandage applied after the skin was cleaned the cleaning solution patient taken to recovery room in stable condition and monitors in the recovery room for 20-30 minutes and discharged home in stable condition after discharge criteria met and patient will follow up with the pain clinic in 2-4 weeks
[2022-08-28 09:07] VITALS: PULSE 58; RESP 18
[2022-08-28 09:21] VITALS: BP 152/88
--- NOTE | 2022-08-28 10:52 | FL ---
EXAMINATION TYPE: FL guided pain mgmt statistic DATE OF EXAM: 08/28/2022 HISTORY: Fluoroscopy time Total dose area product (DAP) in mGy*m? (or similar): 0.27264 IMPRESSION: 1. Fluoroscopy time.
== END 2022-08-28 09:35 | disposition home or self-care (01) ==
LOC: ORPAIN 07:38
PROVIDERS: ATTEND Specialist
DX: M51.36 Other intervertebral disc degeneration, lumbar region (principal); M47.816 Spondylosis without myelopathy or radiculopathy, lumbar region; G89.29 Other chronic pain
CPT/HCPCS: 64493

== ENCOUNTER → 2022-09-17 | Outpatient (CLI) | payer MEDICARE, BC ==
[2022-09-17 11:51] VITALS: BP 155/84; PULSE 54; RESP 18; TEMP 98.1
--- NOTE | 2022-09-17 14:51 | P.PAINPG ---
PQRS Measure Charge Sheet Comment: A 67 yr old male w at side with a history of severe and chronic LBP secondary to lumbar DDD and spondylosis with facet arthropathy without myelopathy presents today for evaluation s/p R MBB L3-L5 #1. Pt states he experienced 0 % pain relief x days s/p procedure. Pain level is provoked at 9/10 in intensity, constant, localized in the R lumbar spine, sharp in character w shooting towards the R knee. Pain is provoked by walking for periods of 20 min or over activity. Pain is alleviated with PT x 6 wks in Jan 2022, massage therapy x 1 session last mo, chiropractic treatments weekly since Apr 2022, heat, ice, medications, repositioning and rest. Interventional pain procedures completed include R MBB L3-L5 x1, R TFESI L5-S1 x1 Patient is currently on Ibu Patient denies any side effects of the medication(s), denies excessive drowsiness or sleepiness, denies suicidal ideation and reports that the current pain medication is helping to control the pain and improve activities of daily living. Patient denies any motor or sensory deficits. Patient denies any fever or night sweats, denies any change in the bowel movements or urination. Physical Examination: -Constitutional: Cooperative. Not in acute distress . - Neurologic: Cranial nerve II to XII intact. No focal neurological deficits. - Psychatric: Alert & oriented x 3. Matching mood & appropriate affect. Judgment and insight intact. - Musculoskeletal: Cervical spine: Muscle bulk/ tone/ strength in the bilateral upper extremities normal Vertebral body tenderness to palpation over Spurling test positive Distraction test positive Facet loading test positive TTP Thoracic spine Muscle bulk / tone/ strength in the bilateral paraspinal muscles normal Vertebral body tender to palpation over Facet loading test positive TTP Lumbar spine: Motor bulk/ tone/ strength lower extremities , thigh and legs : 5/5 Deep tendon reflexes : Normal Knee Jerk. Normal Ankle Jerk . Vertebral body tenderness to palpation over Mcdonough Test positive Lumbar Facet Loading Test positive Straight Leg Raise: positive at 30 degrees right side/ left side Gaenslen's Test positive Sacral spine : Severe tenderness over the Sacroiliac joint: right side / left side Range of motion: Flexion of the lumbar spine <60 degrees Range of motion: Extension of the lumbar spine <20 degrees Gaenslen's Test positive right side / left side Purnima test: positive right side / left side Thigh Thrust Test positive right side / left side Sacral Thrust Test positive right side / left side Assessment and plan: Chronic LBP secondary to lumbar DDD, spondylosis with facet arthropathy without myelopathy Recommendation of R paramedian ERIN L4-L5. May need a series of injections for optimal pain relief. Risks, benefits of procedure discussed and pt verbalized understanding. Admits to anticoagulant use or medical history of diabetes. Protocol for discontinuation/ continuation of medications jacqui procedure discussed. Minimal anesthesia provided, if clinically indicated, consisting of Versed and Fentanyl. All questions answered. I have spent less than 30 minutes on patient care today. Dr Junior was available by phone for the evaluation of this patient. The time was used to review the medical records including relevant urine studies and Prescription history (MAPs), review of the available imaging, evaluation and examination of the patient, coordination of care with the medical staff and if applicable referring physicians, as well as creation of the medical record PQRS Narrative: Hx Alcohol Use (MH) No Home Medications: Ambulatory Orders Cholecalciferol [Vitamin D3 (25 Mcg = 1000 Iu)] 2,000 unit PO DAILY 03/21/20 Famotidine 40 mg PO HS 03/21/20 Glucosam/Jamir-Msm1/C/Kahlil/Bosw [Tsvcgtkqxyh-Dbtpgcuvlpv-MPE Tb] 2 tab PO DAILY 03/21/20 Vit C/E/Zn/Coppr/Lutein/Zeaxan [Preservision Areds 2 Softgel] 2 cap PO DAILY 03/21/20 Loratadine [Claritin] 10 mg PO HS 11/13/20 Ibuprofen 600 mg PO Q8H PRN #15 tab 11/16/20 Alpha Lipoic Acid 600 mg PO DAILY 08/26/22 Atorvastatin [Lipitor] 10 mg PO HS 08/26/22 Losartan [Cozaar] 25 mg PO DAILY 08/26/22 Pregabalin [Lyrica] 150 mg PO DAILY 08/26/22 Controlled Substance Measures - Controlled Substance Measures Is patient prescribed a controlled substance at discharge?: No
== END ==
LOC: PNWHC3 11:04
PROVIDERS: ATTEND Specialist
DX: M51.36 Other intervertebral disc degeneration, lumbar region (principal); G89.29 Other chronic pain; M47.816 Spondylosis without myelopathy or radiculopathy, lumbar region
CPT/HCPCS: 99211

== ENCOUNTER 2022-10-21 08:53 | Day surgery (SDC) | payer MEDICARE, BC ==
[2022-10-15 11:57] VITALS: BMI 24.4
[~2022-10-21 08:53] MED LIST changes: -LIDOCAINE 1% (10MG/ML) FOR IV START INTRADERMA PRN
[2022-10-21 09:14] VITALS: TEMP 98.1
[2022-10-21] MEDS ORDERED: ROPIVACAINE 5 MG/ML 20 ML AMPULE ONE (09:21)
[2022-10-21] MEDS ORDERED: IOPAMIDOL M200 10 ML VIAL ONE (09:21)
[2022-10-21] MEDS ORDERED: TRIAMCINOLONE ACETONIDE 40 MG/ML 1 ML VIAL ONE (09:21)
--- NOTE | 2022-10-21 09:32 | P.PCN ---
Date of Procedure: 10/21/22 Surgeon: Erwin Arias Pathology: none sent Condition: stable Disposition: PACU Description of Procedure: PREOPERATIVE DIAGNOSIS: 1-Lumbar radiculopathy 2- Lumber Degenerative Disc Diseases. POSTOPERATIVE DIAGNOSIS: 1-Lumbar radiculopathy. 2-Lumbar Degenerative Disc Diseases PROCEDURE 1. Lumbar epidural steroid injection under fluoroscopic guidance at the L4-5 level in the right paramedian approach. 2. Lumbar epidurogram. ANESTHESIA: Local only with 1% lidocaine EBL: Minimal PROCEDURE INDICATION: The patient with low back pain and radiculitis symptoms unresponsive to conservative treatment. Fluoroscopy was used to optimize visualization of the needle placement and to maximize safety. PROCEDURE DESCRIPTION / TECHNIQUE: The patient was seen and identified in the preoperative area. Risks, benefits, complications including but not limited to infections ,bleeding ,allergic reaction to the medications ,nerve damage and not complete pain relief , and alternatives were discussed with the patient. The patient agreed to proceed with the procedure and signed the consent. IV was started, and vital signs were stable. Patient was taken to the OR and time out was completed. The patient was placed in the prone position on procedure table and a pillow was placed under the abdomen to reduce lumbar lordosis. The lumbosacral area was prepped and draped in the usual sterile fashion with ChloraPrep.Patient was closely monitored during the procedure. Conscious sedation was used during the procedure to decrease patients anxiety. Vital signs were monitered during the entire pr ocedure. Using anterior-posterior fluoroscopy, the L4-5 interlaminar space was identified and the skin over this site was marked and then infiltrated with 1% lidocaine subcutaneously. Subsequently, a 20-gauge Tuohy epidural needle was inserted and advanced toward the epidural space using the Loss of resistance to air technique and guided by AP and lateral fluoroscopy. The correct needle position in the epidural space was verified with the injection of 1 mL of the water soluble contrast dye Omnipaque 180 contrast and observing an excellent epidurogram with the epidural spread of the dye, after negative aspiration for blood and CSF and in the absence of paresthesias. Again after negative aspiration, a 7 ml mixture containing 40 mg of Kenalog and 5 ml of preservative free Normal Saline, and 2 ml of preservative free Ropivacaine 0.5% solution was injected and a washout of epidurogram was seen. Needle was withdrawn intact, skin was cleansed, and bandages were applied. patient tolerated procedure well and was transferred to PACU in stable condition.A copy of the needle placement picture was saved to the fluoroscopy machine. COMPLICATIONS: None DISPOSITION / PLANS: The patient was placed in a supine position and transferred to the recovery area in a stable condition for observation. There was no evidence of lower extremity motor or sensory deficit after the procedure. Patient was discharged from the recovery room after meeting discharge criteria. Home discharge instructions were given to the patient by the staff. The patient was reexamined prior to discharge. The patient will schedule a follow up in the clinic in 2-4 weeks.
[2022-10-21 09:40] VITALS: PULSE 58
--- NOTE | 2022-10-21 09:54 | FL ---
EXAMINATION TYPE: FL guided pain mgmt statistic DATE OF EXAM: 10/21/2022 HISTORY: Fluoroscopy time Total dose area product (DAP) in uGy*m?, mGy*cm? (or similar): 0.57164 IMPRESSION: 1. Fluoroscopy time.
[2022-10-21 09:55] VITALS: BP 148/91; RESP 20
== END 2022-10-21 09:59 ==
LOC: ORPAIN 08:53
PROVIDERS: ATTEND Anesthesiology
DX: M51.16 Intervertebral disc disorders with radiculopathy, lumbar region (principal); I10 Essential (primary) hypertension
CPT/HCPCS: 62323; J3301; Q9966; J2795

== ENCOUNTER → 2022-11-07 | Outpatient (CLI) | payer MEDICARE, BC ==
--- NOTE | 2022-11-07 11:08 | CT ---
EXAMINATION TYPE: CT lumbar spine wo con DATE OF EXAM: 11/07/2022 COMPARISON: None HISTORY: 67-year-old male Low back pain, spondylosis with radiculopathy TECHNIQUE: Contiguous axial scanning of the lumbar spine without IV contrast. Coronal and sagittal re constructions performed. CT DLP: 558.5 mGycm Automated exposure control for dose reduction was used. FINDINGS: Retroaortic left renal vein. Degenerative bony ankylosis of the SI joints. Severe disc/endplate degenerative change at L2-L3 with some early interbody gliosis anteriorly. Promi nent anterior endplate spondylosis throughout with associated mild degenerative disc disease characte rized by disc bulging. Hypertrophic facet arthropathy throughout with degenerative grade 1 retrolisthesis L2-L3, L3-L4, L4-L 5. Vertebral body heights are preserved. A prominent disc osteophyte complex at L2-L3 mildly narrows the spinal canal. Otherwise, no significant spinal canal stenosis. On the left, changes result in moderate neuroforaminal stenosis at L5-S1. Mild to moderate at L2-L3 a nd L4-L5. Mild additional levels. On the right, changes result in moderate neuroforaminal stenosis at L5-S1 and mild to moderate at add itional levels. IMPRESSION: 1. FACET ARTHROPATHY THROUGHOUT WITH DEGENERATIVE GRADE 1 RETROLISTHESIS L2-L5 LEVELS. 2. SEVERE DISC/ENDPLATE DEGENERATIVE CHANGE AT L2-L3. THERE MAY BE SECONDARY EARLY INTERBODY BONY BALJINDER DGING ANTERIORLY AT THIS LEVEL. IN ADDITION, DISC OSTEOPHYTE COMPLEX HERE CONTRIBUTES TO MILD NARROWI NG OF THE SPINAL CANAL. NO SIGNIFICANT SPINAL CANAL STENOSIS IS SEEN. 3. VARIABLE MILD TO MODERATE NEURAL FORAMINAL STENOSES OUTLINED ABOVE. 4. DEGENERATIVE BONY ANKYLOSIS OF THE BILATERAL SI JOINTS.
== END | disposition home or self-care (01) ==
LOC: RADCTMAIN 08:17
PROVIDERS: ATTEND Orthopaedic Surgery
DX: M47.26 Other spondylosis with radiculopathy, lumbar region (principal); M43.16 Spondylolisthesis, lumbar region; M99.73 Connective tissue and disc stenosis of intervertebral foramina of lumbar region; M51.16 Intervertebral disc disorders with radiculopathy, lumbar region; M25.78 Osteophyte, vertebrae
CPT/HCPCS: 72131

== ENCOUNTER → 2022-11-10 | Outpatient (CLI) | payer MEDICARE, BC ==
[2022-11-10 12:05] VITALS: BP 154/99; PULSE 51; RESP 15; TEMP 98
--- NOTE | 2022-11-10 14:41 | P.PAINPG ---
PQRS Measure Charge Sheet Comment: A 67 yr old male w at side with a history of severe and chronic LBP secondary to lumbar DDD and spondylosis with facet arthropathy without myelopathy presents today for evaluation s/p ERIN L4-L5 #1. Pt states he experienced 90% pain relief x 1 day s/p procedure. Pain level is provoked at 8/10 in intensity, constant, localized in the R lumbar spine, sharp in character w shooting towards the R knee. Pain is provoked by walking for periods of 20 min or over activity. Pain is alleviated with PT x 6 wks in Jan 2022, massage therapy x 1 session last mo, chiropractic treatments weekly since Apr 2022, heat, ice, medications, repositioning and rest. Oswestry axial pain score of 15. Interventional pain procedures completed include R MBB L3-L5 x1, R TFESI L5-S1 x1, ERIN L4-L5 x1 Patient is currently on Ibu Patient denies any side effects of the medication(s), denies excessive drowsiness or sleepiness, denies suicidal ideation and reports that the current pain medication is helping to control the pain and improve activities of daily living. Patient denies any motor or sensory deficits. Patient denies any fever or night sweats, denies any change in the bowel movements or urination. Physical Examination: -Constitutional: Cooperative. Not in acute distress . - Neurologic: Cranial nerve II to XII intact. No focal neurological deficits. - Psychatric: Alert & oriented x 3. Matching mood & appropriate affect. Judgment and insight intact. - Musculoskeletal: Cervical spine: Muscle bulk/ tone/ strength in the bilateral upper extremities normal Vertebral body tenderness to palpation over Spurling test positive Distraction test positive Facet loading test positive TTP Thoracic spine Muscle bulk / tone/ strength in the bilateral paraspinal muscles normal Vertebral body tender to palpation over Facet loading test positive TTP Lumbar spine: Motor bulk/ tone/ strength lower extremities , thigh and legs : 5/5 Deep tendon reflexes : Normal Knee Jerk. Normal Ankle Jerk . Vertebral body tenderness to palpation over Mcdonough Test positive Lumbar Facet Loading Test positive Straight Leg Raise: positive at 30 degrees right side/ left side Gaenslen's Test positive Sacral spine : Severe tenderness over the Sacroiliac joint: right side / left side Range of motion: Flexion of the lumbar spine <60 degrees Range of motion: Extension of the lumbar spine <20 degrees Gaenslen's Test positive right side / left side Purnima test: positive right side / left side Thigh Thrust Test positive right side / left side Sacral Thrust Test positive right side / left side Assessment and plan: Chronic LBP secondary to lumbar DDD, spondylosis with facet arthropathy without myelopathy He will follow up w Dr Yoo to explore additional treatment options. All questions answered. I have spent less than 30 minutes on patient care today. Dr Junior was available by phone for the evaluation of this patient. The time was used to review the medical records including relevant urine studies and Prescription history (MAPs), review of the available imaging, evaluation and examination of the patient, coordination of care with the medical staff and if applicable referring physicians, as well as creation of the medical record PQRS Narrative: Hx Alcohol Use (MH) No Home Medications: Ambulatory Orders Cholecalciferol [Vitamin D3 (25 Mcg = 1000 Iu)] 2,000 unit PO DAILY 03/21/20 Famotidine 40 mg PO HS 03/21/20 Glucosam/Jamir-Msm1/C/Kahlil/Bosw [Xxafqqqadlc-Grujebapjit-WDD Tb] 2 tab PO DAILY 03/21/20 Vit C/E/Zn/Coppr/Lutein/Zeaxan [Preservision Areds 2 Softgel] 2 cap PO DAILY 03/21/20 Loratadine [Claritin] 10 mg PO HS 11/13/20 Ibuprofen 600 mg PO Q8H PRN #15 tab 11/16/20 Alpha Lipoic Acid 600 mg PO DAILY 08/26/22 Atorvastatin [Lipitor] 10 mg PO HS 08/26/22 Losartan [Cozaar] 25 mg PO DAILY 08/26/22 Turmeric Root Extract [Turmeric] 500 mg PO DAILY 10/15/22 Vitamin B Complex 1 each PO DAILY 10/15/22 Controlled Substance Measures - Controlled Substance Measures Is patient prescribed a controlled substance at discharge?: No
== END ==
LOC: PNWHC3 11:07
PROVIDERS: ATTEND Specialist
DX: M51.36 Other intervertebral disc degeneration, lumbar region (principal); M47.816 Spondylosis without myelopathy or radiculopathy, lumbar region; G89.29 Other chronic pain
CPT/HCPCS: 99211

== ENCOUNTER 2022-12-23 08:09 | Inpatient (IN) | payer MEDICARE, BC ==
[2022-12-19 14:19] VITALS: BMI 24.4
[~2022-12-23 08:09] MED LIST changes: +ACETAMINOPHEN TAB 500 MG TAB PO PRN; +GABAPENTIN 300 MG CAP PO PRN; -LACTATED RINGERS 1,000 ML IV SCH; +ONDANSETRON 4 MG/2 ML VIAL IVP ONE; +ONDANSETRON 4 MG/2 ML VIAL IVP PRN; +TRANEXAMIC 1,000 MG/100ML-NACL 1,000 MG in SALINE 1 100ML.BAG IVPB PRN; +fentaNYL (PF) 50 MCG/ML 2 ML AMP IV PRN
[2022-12-23] MEDS: LACTATED RINGERS 1,000 ML IV SCH ×2 (09:01→19:07)
[2022-12-23 09:31] LABS: Basophils % (A) 1 %; Eosinophils # (A) 0.3 k/uL (0-0.7); Eosinophils % (A) 3 %; HCT 48.6 % (39.0-53.0); HGB 16.1 gm/dL (13.0-17.5); Lymphocytes # (A) 2.1 k/uL (1.0-4.8); Lymphocytes % (A) 23 %; MCHC 33.2 g/dL (31.0-37.0); MCV 90.5 fL (80.0-100.0); Mean Platelet Volume 7.7; Monocytes # (A) 0.7 k/uL (0-1.0); Monocytes % (A) 7 %; Neutrophils # (A) 5.8 k/uL (1.3-7.7); Neutrophils % (A) 64 %; Platelet Count 224 k/uL (150-450); RBC 5.37 m/uL (4.30-5.90); RDW 13.2 % (11.5-15.5); WBC 9.1 k/uL (3.8-10.6)
[2022-12-23 09:37] LABS: Prothrombin Time 10.8 sec (9.0-12.0)
[2022-12-23 09:39] LABS: ALT 23 U/L (4-49); AST 26 U/L (17-59); African American GFR (CKD) 83 (>60 ml/min/1.73 sqM); Alkaline Phosphatase 69 U/L (38-126); Anion Gap 10 mmol/L; Blood Urea Nitrogen 16 mg/dL (9-20); Carbon Dioxide 22 mmol/L (22-30); Chloride 107 mmol/L (98-107); Glucose 91 mg/dL (74-99); Non-African American GFR(CKD) 72 (>60 ml/min/1.73 sqM); Sodium 139 mmol/L (137-145); Total Bilirubin 1.4 mg/dL (0.2-1.3)
--- NOTE | 2022-12-23 10:11 | P.HPOR ---
History of Present Illness H&P Date: 12/23/22 .D:Date: 11/05/22 : 09:06am .T:Title: [facility] Date of :[birth year] [id number]: NKDA Age: 66 year Height: 6' Weight: 180 lbs BMI: 24.41 kg/m2 Occupation: Retired VAS: 5 CHIEF COMPLAINT: Preoperative evaluation for Stage I: L2-3 lateral interbody fusion, Stage II: posterior decompression and fusion stabilization DOI: Chronic DOS: n/a Duration of current treatment regiment:n/a HISTORY : Xrays No new xrays taken in office Trauma or injury No Work-Related No Pain description Sharp, burning, increasing Location Diffuse Patient notes that their pain radiates to right lower extremity Activity Modification No Hand Dominance Right TREATMENTS COMPLETED: 6 weeks of PT completed? Month and Year of last PT date? Yes, 12 sessions Some relief Physician directed home exercise completed? Yes, patient has trialed the physician directed home exercise program with some relief of their symptoms. Medications Yes List: Motrin 800 mg Alternative interventions Chiropractic: yes, with relief Massage therapy:No R.I.C.E:yes Brace:No Injections Right facet block L2-3 with some relief SUBJECTIVE: Mr. Lin presents to the office for a preoperative evaluation preceeding their previously scheduled Stage I: L2-3 lateral interbody fusion, Stage II: posterior decompression and fusion stabilization. The patient reports experiencing a continued sharp, burning pain throughout the low back that radiates down into the right buttock, groin, and posterior aspect of the right lower extremity. The patient states that his lower extremity pain is associated with weakness, numbness, and tingling. He reports experiencing a significant increase in his symptoms over the last 2 to 3 weeks. The patient states that his pain is exacerbated by all activity, which makes it very difficult for him to complete any of his daily tasks. The patient reports experiencing moderate to severe sleep disturbances due to his ongoing pain and associated symptoms. The patient has trialed conservative treatment in the form of physical therapy, physician directed at home stretches/exercises, at home heat/ice therapies, activity modification, and right facet blocks at L2-3. He notes that conservative measures have provided him with mild temporary relief of his symptoms, though the relief is not sustained and has gradually worsened over time. The patient notes that his symptoms have started to become intolerable. The patient is currently taking Motrin 800 mg as needed with mild relief. Otherwise the patient denies any f/c/sob/cp, no bladder or bowel retention/incontinence, no perineal numbness/tingling, and ambulates independently today. HPI: Mr. Lin presents to the office on 07/23/2022 regarding a recheck of his low back pain. Patient states he continues to have right lateral burning and sharp lumbar pain that it radiates into the right buttock and into the right groin and right lower extremity, associated with numbness and tingling into his foot. He states his symptoms increase throughout the day. Patient is taking motrin and pregabalin for pain relief. Since last visit patient does report noticing right lower extremity weakness. For their symptoms, the patient has been taking Motrin and Tylenol. Otherwise the patient denies any f/c/sob/cp, no bladder or bowel retention/incontinence, no perineal numbness/tingling, and ambulates independently. Mr. Lin returns to the office on 05/19/2022 for a recheck of their low back pain. Patient reports decreasing lumbar pain since the time of the last appointment. Furthermore the patient does also report significant improvement to his right lower extremity radicular symptoms. Of note, he did complete the previously ordered lumbar L2-L4 transforaminal injection and found some relief of his symptoms. Patient would like to return to his daily activities as tolerated at this time. Patient is having mild sleep disturbances as well due to their ongoing pain and associated symptoms. Regarding treatments, the patient has previously trialed all above mentioned treatment modalities without relief of his symptoms. He is currently taking Motrin, Tylenol, and Lyrica 150mg all with relief of his symptoms. Patient denies trialing any other modalities at this time. Otherwise the patient denies any f/c/sob/cp, no bladder or bowel retention/incontinence, no perineal numbness/tingling, and ambulates independently. Mr. Lin was last seen on 01/22/22 regarding a recheck of his low back pain. Since the last visit patient has completed PT of the lumbar spine and reports some relief of symptoms. Patient states he continues to have right lateral burning and sharp lumbar pain that it radiates into the right buttock and into the right groin and right lower extremity, associated with numbness and tingling into his foot. He states his symptoms increase throughout the day. Patient states no pain while sleeping or sitting awhile. For their symptoms, the patient has been taking Motrin and Tylenol. Otherwise the patient denies any f/c/sob/cp, no bladder or bowel retention/incontinence, no perineal numbness/tingling, and ambulates independently. Mr. Lin was last seen on 12/09/21 regarding an evaluation of their low back pain. Patient is tearful during evaluation. Patient reports a right lateral burning and sharp lumbar pain ongoing for 1 year with no known injury or trauma to indicate an exact onset of their symptoms. In addition to their lumbar pain, they do report that it radiates into the right groin and right lower extremity, associated without numbness and tingling. Overall the patient has seen a progressive increase in symptoms since their onset. Mr. Lin symptoms are exacerbated with ambulation, due to this they notes that it is increasingly difficult for Mr. Lin to complete many of their daily tasks. He states she has decreased her activity to accommodate for pain. Patient states no pain while sleeping or sitting awhile. Regarding treatments, the patient has previously trialed the above listed modalities. Patient denies trialing any other modalities at this time. For their symptoms, the patient has been taking Motrin and Tylenol. Otherwise the patient denies any f/c/sob/cp, no bladder or bowel retention/incontinence, no perineal numbness/tingling, and ambulates independently. The patients' past social, medical, family, surgical history, as well as review of systems, have been reviewed. Please refer to the Neurosurgery History and Physical form that has been scanned in to our electronic medical record system. 14 points review of systems completed and as stated in HPI, all other systems reviewed are negative. Social History: Reviewed, see appropriate section of the chart for details. P3 Family History: Reviewed, see appropriate section of the chart for details. P2 Past Medical History: Reviewed, see appropriate section of the chart for details. [id number] Medications: Rx: atorvastatin 10 mg tablet Ref: 0 Rx: famotidine 10 mg tablet Ref: 0 Rx: glucosamine-chondroitin Ref: 0 Rx: loratadine 10 mg tablet Ref: 0 Rx: PreserVision Lutein Ref: 0 Rx: Vitamin D2 1,250 mcg (50,000 unit) capsule Ref: 0 Rx: IBU 800 mg tablet Ref: 0 Rx: pregabalin 150 mg capsule Ref: 0 P1 PHYSICAL EXAMINATION: General:Awake, alert, appropriate for age, in no acute distress. HEENT:No unusual neck masses around region of lateral neck triangle, thyroid, supraclavicular groove Heart:Regular rate and rhythm, normal S1, S2 and no murmur/gallop. Lungs:Clear to auscultation bilaterally with no use of accessory muscles. Extremities:Skin warm and dry without acute lesions, coloration, temperature, skin intact, no tenderness or erythema Integument: Hairy patches:ABSENT Dorsal skin dimples:ABSENT Cafe au lait spots:ABSENT Surgical incisions:n/a Palpation: Please see Pain drawing on Intake sheet for further detail. Midline spinal tenderness: No E6 Cervical Tenderness: No E6 Paralumbar tenderness: YES E6 Parathoracic tenderness: No E6 Buttocks tenderness: No E6 Sacroiliac Tenderness: No POSTURAL and MUSCULO-SKELETAL EVALUATION: Coronal Balance: NEUTRAL Recumbent testing: Patient is able to lay flat on back Sagittal Balance: NEUTRAL Shoulder Profile: LEVEL Pelvic Girdle: LEVEL Neck ROM: UNRESTRICTED Lumbar ROM: RESTRICTED Shoulder ROM: Symmetrical Hip ROM: Symmetrical Knee ROM: Symmetrical Hands: Normal appearance, symmetrical Feet: Normal appearance, Symmetrical VASCULAR STATUS : LEFT RIGHT Wrist Pulses INTACT INTACT Pedal Pulses (Dors. pedis & post.tibialis) INTACT INTACT Color NORMAL NORMAL Edema Absent Absent NEUROLOGIC EXAMINATION: Mental Status:Awake and alert, fully oriented, with normal attention, concentration and memory, and fluent, appropriate speech. Cranial Nerves: I: Olfactory not tested. II: Visual acuity normal, no visual field deficit noted with confrontation. III,IV: Normal pupillary reflexes & intact extraocular movements without nystagmus. V,: Intact symmetrical facial sensation. VII: Intact symmetrical facial motor movement VIII: Hearing intact. IX,X: Intact gag, swallow, & normal voice. XI: Sternocleidomastoid, trapezius function intact. XII: Tongue midline with normal movements. L'hermitte's Sign: Negative / absent Spurling'Sign: Absent bilaterally. Cubital percussion test: Absent bilaterally. Tse-Tinel sign - Carpal region: Absent bilaterally. Straight Leg Raising: Absent bilaterally. Crossed straight leg raise: negative O8 MOTOR EXAM (0-5/5, N/T) UPPER EXTREMITY Shoulder Abduction Biceps Triceps Wrist Extension Hand Intrinsics Manager Pacu Right 5/5 5/5 5/5 5/5 5/5 5/5 Left 5/5 5/5 5/5 5/5 5/5 5/5 LOWER EXTREMITY Hip Flexion Knee Extension Knee Flexion DF PF EHL FHL Right 4/5 4-/5 4-/5 4/5 4/5 4/5 4/5 Left 5/5 5/5 5/5 5/5 5/5 5/5 5/5 REFLEXES(0-4/2, NT)Upper ExtremityLower Extremity Right 2 2 Left 2 2 Pathological Reflexes RIGHT LEFT Tse's Absent Absent Clonus Absent Absent Babinski Absent Absent # Indicates mechanical impairment Muscle appearance:Symmetrical, without signs of atrophy or dystrophy. Sensory system (0-4, N/T) Test type RU PABLO RL LL Joint-Position 2 2 2 2 Vibration 2 2 2 2 Pain & LT sense 2 2 2 2 Dermatomal Deficit: None None L2-4 None Gait and Functional Evaluation: Ambulatory aids:Independent Romberg's test:Intact bilaterally Toe heel walk / heel-toe walk intact while maintaining satisfactory balance? yes Squatting/straightening w/o assistance to a min of 60 degree knee flexion? No Single leg stance:intact Trendelenburg sign negative bilaterally Hand and finger dexterity intact bilaterally?yes Disdiadochokinesis examination negative bilaterally? yes Steady Gait RADIOGRAPHIC STUDIES: MRI /14/22 of LumbarSpine: impression: 1. Straightening of the normal lumbar lordosis consistent with strain in the appropriate clinical circumstance versus secondary to compressive discopathy as described above. Recommend clinical correlation. 2. L2-3: 5 mm broad based disc herniation effaces the ventral surface of the thecal sac resulting in moderate bilateral neural foraminal encroachment and bilateral exiting L2 nerve impingement in conjunction with facet arthrosis. 3. L3-4: 4 mm broad-based disc herniation effaces the ventral surface of the thecal sac resulting in moderate to severe right and moderate left neural foraminal encroachment and bilateral exiting L3 nerve impingement in conjunction with facet arthrosis. The central canal is adequately patent. 4. L4-5: Posterior annular tear is seen within the intervertebral disc. 3-4 mm broad-based disc herniation effaces the ventral surface of the thecal sac resulting in moderate to severe bilateral neural foraminal encroachment and bilateral exiting L4 nerve impingement in conjunction with facet arthrosis. The central canal is adequately patent. 5. L5-S1: 2-3 mm broad-based disc herniation effaces the ventral surface of the thecal sac resulting in moderate to severe bilateral neural foraminal encroachment, left greater than right, and bilateral exiting L5 nerve impingement in conjunction with facet arthrosis. The central canal is adequately patent. Spine Surgery Risk Review Mr. Lin is presenting for evaluation of low back pain. It was my pleasure to have seen and examined Mr. Lin. In our visit today we have had a chance to go over subjective complaints, phys ical examination findings and treatments including the natural course history without intervention and various interventional options. The patients imaging demonstrates: MRI scan from01/24/22 of LumbarSpine: impression: 1. Straightening of the normal lumbar lordosis consistent with strain in the appropriate clinical circumstance versus secondary to compressive discopathy as described above. Recommend clinical correlation. 2. L2-3: 5 mm broad based disc herniation effaces the ventral surface of the thecal sac resulting in moderate bilateral neural foraminal encroachment and bilateral exiting L2 nerve impingement in conjunction with facet arthrosis. 3. L3-4: 4 mm broad-based disc herniation effaces the ventral surface of the thecal sac resulting in moderate to severe right and moderate left neural foraminal encroachment and bilateral exiting L3 nerve impingement in conjunction with facet arthrosis. The central canal is adequately patent. 4. L4-5: Posterior annular tear is seen within the intervertebral disc. 3-4 mm broad-based disc herniation effaces the ventral surface of the thecal sac resulting in moderate to severe bilateral neural foraminal encroachment and bilateral exiting L4 nerve impingement in conjunction with facet arthrosis. The central canal is adequately patent. 5. L5-S1: 2-3 mm broad-based disc herniation effaces the ventral surface of the thecal sac resulting in moderate to severe bilateral neural foraminal encroachment, left greater than right, and bilateral exiting L5 nerve impingement in conjunction with facet arthrosis. The central canal is adequately patent. On physical exam, Mr. Lin demonstrates: The patient reports experiencing a continued sharp, burning pain throughout the low back that radiates down into the right buttock, groin, and posterior aspect of the right lower extremity. The patient states that his lower extremity pain is associated with weakness, n umbness, and tingling. He reports experiencing a significant increase in his symptoms over the last 2 to 3 weeks. The patient states that his pain is exacerbated by all activity, which makes it very difficult for him to complete any of his daily tasks. The patient reports experiencing moderate to severe sleep disturbances due to his ongoing pain and associated symptoms. The patient notes that his symptoms have started to become intolerable. I have explained to the patient that as their condition progresses it will cause further neurological deficits and eventual paralysis. Based on the patients imaging, physical exam, and the rapid progression and disabling nature of their symptoms, at this time I recommend surgery in the form of a: STAGE 1: L2-3 LATERAL INTERBODY FUSION AND STAGE 2: POSTERIOR DECOMPRESSION AND FUSION STABILIZATION. I discussed the risk and benefits of this procedure at length with Mr. Lin. The patient and significant other in the room agreed to considered pursuing the procedure above mentioned. Prior to surgery, she should follow up with her PCP (Cardio, ID, IM etc) for clearance. Questions were invited and answered, and the patient wishes to proceed as outlined below. Currently, I am recommendin. STAGE 1: L2-3 LATERAL INTERBODY FUSION AND STAGE 2: POSTERIOR DECOMPRESSION AND FUSION STABILIZATION. 2.Follow up with PCP for surgical clearance 3.Review of surgical risks and benefits as well as an educational packet on the proposed surgical procedure. Risks: All surgical procedures come with inherent risks, including those related to positioning, anesthesia, intraoperative findings, and postoperative complications. It is important to understand that surgery does not come with any guarantee of a successful outcome as complications and adverse events are always possible. The patient was given a handout in office today discussing the surgical procedure and risks associated with the intervention, both of which were discussed with the patient. These risks include but are not limited to the fol lowing: * Experiencing same, different or even worse symptoms in back, neck, arms, or legs compared to before surgery. Requiring further surgery or other forms of treatment presently or at some time in the future at same or other levels of the intended spine surgery. On an extreme but fortunately relatively rare basis severe complication such as blindness, stroke, heart attack, temporary and/or permanent nerve injury, paralysis, coma, or may occur, sometimes without known explanation. Surgical complications may include but are not limited to risk of infection, fluid accumulation in the surgical dissection site, including a seroma or hematoma, that requires additional surgery, wound drainage, bleeding, new numbness or weakness, vision changes/loss, spinal fluid leakage, non-healing and/or infected incision, headaches, difficulty or inability to swallow, hoarseness, hemopneumothorax, pneumothorax, impotence, retrograde ejaculation, vaginal dryness; injury to nerves, spinal cord, blood vessels, lymphatics or other vital organs (i.e., bowel injury, injury to the great vessels); heterotopic bone formation; complications related to the hardware such as screws , rods, cages including misplaced hardware, device failure, instrumentation at the wrong spine level, hardware fracture/breakage, or hardware loosening; vertebral failure of the spinal column above or below the newly placed hardware; retained surgical instrumentations or devices and the need for further surgery. * Medical risks of the planned spine surgery include but are not limited to generalized Infections to the whole body or local areas outside of the surgical site (sepsis), heart attack, bleeding, anaphylaxis, meningitis, seizure, epilepsy, hearing loss, burn lr, laceration of the head or other areas of the body, bruising, hypersensitivity of the skin, bladder over distension; allergic reaction; shoulder injury related to positioning; fat, blood and air clots to other areas of the body like heart, lungs, brain; failure of internal organs such as lungs, kidneys, liver and excessive bleeding. If blood transfusions are necessary, note that transfusions may cause intolerance reactions such as anaphylaxis or other complex reactions. Despite best efforts, the results of spine surgery might not heal in terms of bone, soft tissues such as skin, fascia, ligaments, and joints. Additionally, in order to achieve best possible results, spine surgery may be carried out beyond the initially planned levels and involve decompression, fusion including insertion of hardware at levels other than the original intended area of surgical interest change some portions of the procedure in order to ensure the best possible outcomes. With spine surgery and spinal fusion, there are different off label uses of instrumentation (devices, implants and hardware) as well as biological substances (bone morphogenic proteins, demineralized bone matrix) as well as using extra bone from allograft sources (i.e. cadaver bone) or autograft (iliac crest bone, ribs, or the spine itself). The patient has been given information about these practices and their inherent risks and benefits. [facility] is an educational center that serves as a training facility for neurosurgical and orthopedic ENVIRONMENTAL MAINTENANCE WORKER and Nursing students. Physician assistants are medically trained surgical providers who function in the outpatient, inpatient, and operating room setting under the direct supervision of the attending surgeon. [facility] has multiple operating rooms with single and overlapping rooms running daily. They currently function under the required guidelines as produced by the [facility] Finance Committee with regards to the overlapping rooms and will continue to comply with changes to this policy as they occur. The requirements include and are complied with as follows: (1) the critical portions of the overlapping rooms will not occur at the same time, (2) the attending physician will be physically present during the critical portions of the procedure and immediately available during the entire case, and (3) a back-up attending is designated should the primary attending not be immediately available. The patient has had a chance to review all the listed information, has been given print outs detailing this information, and has had all his/her questions answered to their satisfaction. It was my pleasure to have seen and examined Mr. Lin. In our visit today we have had a chance to go over my understanding of our patient's current condition, the natural course history without intervention and various interventional options. Questions were invited and answered, and the patient wishes to proceed as outlined above. I have seen and examined the patient for 25 minutes and we have spent more than 50% of the time in repeat and detailed counseling about the patient's condition, its natural course history with out and as much as can be predicted with surgery and re-review of various surgical treatment options. In conclusion, Mr. Lin and requested we proceed with the above suggested surgery and are willing to accept risks and limitations of the suggested surgery as nature of the disease process and our best attempts at treatment for the condition. Thank you again for allowing us to be part of your patient's care. Please don't hesitate to contact me if you have any further questions. IMPRESSION: It was my pleasure to have seen and examined Orestes. I reviewed the patient's clinical syndrome, physical findings, and imaging studies during the appointment today. It is my impression that the patient has a diagnosis of. 1. L2-3 lumbar spondylosis with stenosis 2. Right lower extremity radiculopathy 3. Right lower extremity weakness 4. L5-S2 spondylosis 5. Right hip osteoarthritis I outlined the natural course history without intervention and various interventional options. PLAN All options were reviewed today, we decided the best course of action would be: - I discussed treatment options with the patient, including operative and non- operative options, and they have elected to proceed with the following surgical procedure: STAGE 1: L2-3 LATERAL INTERBODY FUSION AND STAGE 2: POSTERIOR DECOMPRESSION AND FUSION STABILIZATION. The indications, risks, benefits, and alternatives to surgery were discussed with the patient and family at length. Specifically (but not limited to) the risks of infection, stiffness, recurrence of symptoms, need for revision surgery, local numbness, neurovascular injury, and blood clots were discussed. The patient's questions were answered.The decision to proceed was made. Consent will be obtained for the procedure. - I have ordered a CT scan of the lumbar spine, which the patient is to complete prior to surgery. - Ambulate daily - Take pain medications and post op medications as needed and as directed - Ice and rest for pain and swelling control. Follow-up: Post procedure Patient Education: (Informational booklet, instructions, etc) given at today's appointment: Yes .ED:Patient Education: Y Medications Reviewed: YES In our visit today Mr. Lin and I have had a chance to go over my understanding of the patient's current condition, the natural course history without intervention and various interventional options. Questions were invited and answered, and the patient wishes to proceed as outlined above. I will be sure to keep you updated afterMr. Lin returns here for further f ollow-up. Thank you again for your referral. Please do not hesitate to contact me if you have any further questions. Signed and authenticated by: [facility] Complex and Minimally Invasive Spine Surgery [id number] [facility], [address] [address] [address] This message is confidential, intended only for the named recipient(s) and may contain information that is privileged or exempt from disclosure under applicable law. If you are not the intended recipient(s), you are notified that the dissemination, distribution or copying of this information is strictly prohibited. If you received this message in error, please notify the sender then delete this message. Patient verbalizes understanding of the information discussed. The above note was initiated by Tiera Sorensen, physician recording teachers assistant for Dr. Kun Yoo. This note has been reviewed by Dr. Yoo, who has made his personal changes and impressions for this document. CC: Cherry Felix MD # SIGNED BY Kun Yoo (GOO)11/14/2022 07:52AM Past Medical History Past Medical History: GERD/Reflux, Hyperlipidemia, Hypertension Additional Past Medical History / Comment(s): KIDNEY STONES History of Any Multi-Drug Resistant Organisms: None Reported Past Surgical History: Joint Replacement Additional Past Surgical History / Comment(s): lt hip replacement, rotator cuff repair Past Anesthesia/Blood Transfusion Reactions: Motion Sickness Past Psychological History: No Psychological Hx Reported Smoking Status: Former smoker Past Alcohol Use History: None Reported Additional Past Alcohol Use History / Comment(s): STARTED SMOKING AT AGE 15 QUIT AT AGE 32 SMOKED 1-2 PPD Past Drug Use History: Marijuana Additional Drug Use History / Comment(s): MARIJUANA OCCASIONAL USE- INSTRUCTED TO HOLD 24 HOURS PRIOR TO PROCEDURE - Past Family History Mother Family Medical History: Congestive Heart Failure (CHF) Medications and Allergies Home Medications Medication Instructions Recorded Confirmed Type Cholecalciferol [Vitamin D3 (25 2,000 unit PO DAILY 03/21/20 12/19/22 History Mcg = 1000 Iu)] Famotidine 40 mg PO HS 03/21/20 12/19/22 History Glucosam/Jamir-Msm1/C/Kahlil/Bosw 2 tab PO DAILY 03/21/20 12/19/22 History [Pspvulgsasr-Wlhptvlorcb-DYR Tb] Vit C/E/Zn/Coppr/Lutein/Zeaxan 2 cap PO DAILY 03/21/20 12/19/22 History [Preservision Areds 2 Softgel] Loratadine [Claritin] 10 mg PO HS 11/13/20 12/19/22 History Alpha Lipoic Acid 600 mg PO DAILY 08/26/22 12/19/22 History Atorvastatin [Lipitor] 10 mg PO HS 08/26/22 12/19/22 History Losartan [Cozaar] 25 mg PO BID 08/26/22 12/19/22 History Turmeric Root Extract [Turmeric] 500 mg PO DAILY 10/15/22 12/19/22 History Vitamin B Complex 1 each PO DAILY 10/15/22 12/19/22 History Garlic 1,000 mg PO DAILY 12/19/22 12/19/22 History Nf-Magnesium Glycinate 2 tab PO DAILY 12/19/22 12/19/22 History Allergies Allergy/AdvReac Type Severity Reaction Status Date / Time No Known Allergies Allergy Verified 12/19/22 14:04 Physical Examination Osteopathic Statement: *. No significant issues noted on an osteopathic structural exam other than those noted in the History and Physical/Consult.
[2022-12-23] MEDS ORDERED: SUCCINYLCHOLINE CHLORIDE 200 MG/10 ML VIAL IV ONE (10:43)
[2022-12-23] MEDS ORDERED: MIDAZOLAM 2 MG/2 ML VIAL ONE (10:43)
[2022-12-23] MEDS ORDERED: TRANEXAMIC 1,000 MG/100ML-NACL PREMIX BAG ONE (10:43)
[2022-12-23] MEDS ORDERED: KETAMINE 10 MG/ML 20 ML VIAL ONE (10:43)
[2022-12-23] MEDS ORDERED: PROPOFOL 10 MG/ML 20 ML VIAL IV ONE (10:43)
[2022-12-23] MEDS ORDERED: hydrALAZINE HCL 20 MG/ML 1 ML VIAL ONE (10:43)
[2022-12-23] MEDS ORDERED: fentaNYL (PF) 50 MCG/ML 2 ML AMP ONE (10:43)
[2022-12-23] MEDS ORDERED: GELATIN SPONGE,ABSORB (LARGE) 1 EACH SPONGE TOPICAL ONE (11:53)
[2022-12-23] MEDS ORDERED: THROMBIN (BOVINE) 5,000 UNIT VIAL TOPICAL ONE (11:53)
[2022-12-23] MEDS ORDERED: HYDROmorphone 1 MG/ML 1 ML SYRINGE IVP PRN (14:06)
[2022-12-23] MEDS ORDERED: HYDROmorphone 0.5 MG/0.5 ML SYRINGE IVP PRN (14:06)
[2022-12-23] MEDS ORDERED: HYDROcodone/APAP 5-325MG 1 EACH TAB PO PRN (14:06)
[2022-12-23] MEDS: HYDROmorphone 0.5 MG/0.5 ML SYRINGE IVP PRN ×4 (14:12→15:08)
[2022-12-23] MEDS ORDERED: HYDROmorphone 0.5 MG/0.5 ML SYRINGE IVP ONE (14:24)
[2022-12-23] MEDS ORDERED: ENALAPRILAT 1.25 MG/ML 1 ML VIAL IVP ONE (15:40)
[2022-12-23] MEDS: CYCLOBENZAPRINE 5 MG TAB PO PRN (15:42)
--- NOTE | 2022-12-23 17:14 | P.CONS ---
History of Present Illness - Reason for Consult Consult date: 12/23/22 - History of Present Illness Patient is a 67-year-old male with history of hypertension, dyslipidemia pres enting for elective lumbar spine surgery. [facility] has been consulted for medical management. Laboratory workup from this morning shows WBC 9.1, hemoglobin 16.1, sodium 139, potassium 4, creatinine 1.08. Vital signs are currently within normal limits. Patient denies any chest pain, shortness of breath, abdominal pain, nausea, vomiting, urinary or bowel complaints. Lora in place. Pertinent positives and negatives as discussed in HPI, a complete review of systems was performed and all other systems are negative. Patient seen and examined at bedside. Vital signs reviewed General: nontoxic, no distress, appears at stated age Derm: warm, dry, lumbar dressing not observed Head: atraumatic, normocephalic, symmetric Eyes: EOMI, no lid lag, anicteric sclera, pupils equal round reactive to light ENT: Nose and ears atraumatic Neck: No thyromegaly, supple Mouth: no lip lesion, mucus membranes moist Cardiovascular: S1S2 reg, no murmur, no edema Lungs: clear to auscultation bilateral, no rhonchi, no rales, no wheeze, no accessory muscle use Abdominal: soft, nontender to palpation, no guarding, no appreciable organomegaly Ext: no gross muscle atrophy, muscle strength muscle strength 5 out of 5 in all 4 extremities, no contractures Neuro: CN II-XII grossly intact Psych: Alert, oriented, appropriate affect Assessment/Plan: Status post lumbar surgery Hypertension Dyslipidemia -Repeat CBC and CMP tomorrow -Home Medications reviewed and reconciled -On oral [place], IV Dilaudid for pain Thank you for allowing us to participate in the care of this pleasant patient. Do not hesitate to contact us with questions. Someone can be reached from the [facility] hospitalist group all hours of the day at [phone] or via [employer] Past Medical History Past Medical History: GERD/Reflux, Hyperlipidemia, Hypertension Additional Past Medical History / Comment(s): KIDNEY STONES History of Any Multi-Drug Resistant Organisms: None Reported Past Surgical History: Joint Replacement Additional Past Surgical History / Comment(s): lt hip replacement, rotator cuff repair Past Anesthesia/Blood Transfusion Reactions: Motion Sickness Past Psychological History: No Psychological Hx Reported Smoking Status: Former smoker Past Alcohol Use History: None Reported Additional Past Alcohol Use History / Comment(s): STARTED SMOKING AT AGE 15 QUIT AT AGE 32 SMOKED 1-2 PPD Past Drug Use History: Marijuana Additional Drug Use History / Comment(s): MARIJUANA OCCASIONAL USE- INSTRUCTED TO HOLD 24 HOURS PRIOR TO PROCEDURE - Past Family History Mother Family Medical History: Congestive Heart Failure (CHF) Medications and Allergies Home Medications Medication Instructions Recorded Confirmed Type Cholecalciferol [Vitamin D3 (25 2,000 unit PO DAILY 03/21/20 12/23/22 History Mcg = 1000 Iu)] Famotidine 40 mg PO HS 03/21/20 12/23/22 History Glucosam/Jamir-Msm1/C/Kahlil/Bosw 2 tab PO DAILY 03/21/20 12/23/22 History [Walihmiszax-Gtgugvwlujr-QOU Tb] Vit C/E/Zn/Coppr/Lutein/Zeaxan 2 cap PO DAILY 03/21/20 12/23/22 History [Preservision Areds 2 Softgel] Loratadine [Claritin] 10 mg PO HS 11/13/20 12/23/22 History Alpha Lipoic Acid 600 mg PO DAILY 08/26/22 12/23/22 History Atorvastatin [Lipitor] 10 mg PO HS 08/26/22 12/23/22 History Losartan [Cozaar] 25 mg PO BID 08/26/22 12/23/22 History Turmeric Root Extract [Turmeric] 500 mg PO DAILY 10/15/22 12/23/22 History Vitamin B Complex 1 each PO DAILY 10/15/22 12/23/22 History Garlic 1,000 mg PO DAILY 12/19/22 12/23/22 History Nf-Magnesium Glycinate 2 tab PO DAILY 12/19/22 12/23/22 History Allergies Allergy/AdvReac Type Severity Reaction Status Date / Time No Known Allergies Allergy Verified 12/23/22 08:58 Physical Exam Vitals: Vital Signs Temp Pulse Resp BP Pulse Ox 12/23/22 16:18 72 16 158/82 97 12/23/22 15:56 69 16 154/89 97 12/23/22 15:44 73 16 170/101 96 12/23/22 15:30 79 16 170/101 98 12/23/22 15:01 76 16 179/85 98 12/23/22 14:45 72 16 165/70 98 12/23/22 14:30 77 16 168/91 98 12/23/22 14:15 70 16 161/92 98 12/23/22 14:08 97.2 F L 85 16 141/88 96 12/23/22 08:56 97.4 F L 63 16 158/86 98 Intake and Output 12/23/22 12/23/22 12/23/22 06:59 14:59 22:59 Intake Total 2049 Output Total 500 Balance 1550 Intake: IV 2049 Output: Urine 400 Estimated Blood Loss 100 Other: Weight 80.74 kg Results CBC & Chem 7: 12/23/22 09:25 12/23/22 09:25 Labs: Abnormal Lab Results - Last 24 Hours (Table) 12/23/22 Range/Units 09:25 Total Bilirubin 1.4 H (0.2-1.3) mg/dL
[2022-12-23] MEDS: HYDROcodone/APAP 10-325MG 1 EACH TAB PO PRN (17:30)
--- NOTE | 2022-12-23 19:07 | CT ---
EXAMINATION TYPE: CT lumbar spine wo con CT DLP: 1026.6 mGycm, Automated exposure control for dose reduction was used. DATE OF EXAM: 12/23/2022 6:30 PM COMPARISON: 10/30/2022. CLINICAL INDICATION:Male, 67 years old with history of Post op L2-L3 fusion; PHH, Post op L2-L3 fusio n TECHNIQUE: Multiple axial images were obtained from the midportion of T11 through the sacroiliac luann nts. Soft tissue and bone windows in coronal and sagittal planes were obtained and reviewed. Contrast used: none. Oral contrast used: none. FINDINGS: Postsurgical changes to the lumbar spine with fixation hardware at L2 and L3. Discectomy at L2-L3. Quiles rdware limits evaluation at these levels. Hardware appears intact. No evidence of fracture. Postsurgical changes in the soft tissues with foci of gas present. Posterior back skin sebastián are pr esent. IMPRESSION: Postsurgical changes without evidence of immediate post operative complication.
--- NOTE | 2022-12-23 19:51 | FL ---
Intraoperative/procedural fluoroscopic services were provided. Total fluoroscopy time is 85 seconds w ith a total of 6 submitted images to PACS. Please see the operative/procedural note for further detai ls. DAP: 19.36 Gycm2+ 2336.50 cGycm2
[2022-12-23] MEDS ORDERED: LOSARTAN 25 MG TAB PO SCH (21:00)
[2022-12-23] MEDS: LORATADINE 10 MG TAB PO SCH (21:48)
[2022-12-23] MEDS: ONDANSETRON 4 MG/2 ML VIAL IVP PRN (21:48)
[2022-12-23] MEDS: ATORVASTATIN 10 MG TAB PO SCH (21:48)
[2022-12-23] MEDS: FAMOTIDINE 20 MG TAB PO SCH (21:48)
[2022-12-23] MEDS: oxyCODONE-APAP 7.5-325MG 1 EACH TAB PO PRN (21:48)
[2022-12-23 23:43] LABS: African American GFR (CKD) >90 (>60 ml/min/1.73 sqM); Anion Gap 10 mmol/L; Blood Urea Nitrogen 11 mg/dL (9-20); Calcium 8.5 mg/dL (8.4-10.2); Carbon Dioxide 21 mmol/L (22-30); Chloride 102 mmol/L (98-107); Glucose 163 mg/dL (74-99); Non-African American GFR(CKD) >90 (>60 ml/min/1.73 sqM); Sodium 133 mmol/L (137-145)
[2022-12-24] MEDS: HYDROcodone/APAP 10-325MG 1 EACH TAB PO PRN (02:40)
[2022-12-24] MEDS: ONDANSETRON 4 MG/2 ML VIAL IVP PRN ×2 (02:52→07:50)
[2022-12-24 07:19] LABS: Basophils % (A) 0 %; Eosinophils % (A) 0 %; HCT 48.3 % (39.0-53.0); Lymphocytes # (A) 1.3 k/uL (1.0-4.8); Lymphocytes % (A) 8 %; MCH 29.6 pg (25.0-35.0); MCHC 33.1 g/dL (31.0-37.0); MCV 89.3 fL (80.0-100.0); Mean Platelet Volume 7.9; Monocytes # (A) 1.2 k/uL (0-1.0); Monocytes % (A) 7 %; Neutrophils # (A) 13.5 k/uL (1.3-7.7); Neutrophils % (A) 83 %; Platelet Count 227 k/uL (150-450); RDW 12.9 % (11.5-15.5); WBC 16.2 k/uL (3.8-10.6)
[2022-12-24] MEDS: oxyCODONE-APAP 7.5-325MG 1 EACH TAB PO PRN (07:49)
[2022-12-24] MEDS: CYCLOBENZAPRINE 5 MG TAB PO PRN ×2 (07:50→17:06)
--- NOTE | 2022-12-24 08:59 | P.PN ---
Subjective Progress Note Date: 12/24/22 Principal diagnosis: 1. L2-3 lumbar spondylosis with stenosis 2. Right lower extremity radiculopathy 3. Right lower extremity weakness 4. L5-S2 spondylosis 5. Right hip osteoarthritis Patient seen and examined this morning. Patient is resting comfortably in bed. He does report pain and burning to the left lateral incision and nausea. Surgical incision to the left lateral and paralumbar spine are CDI. No shadowing noted. Medications have been adjusted for nausea and pain management. Encouraged patient to continue to utilize ice packs. Wong catheter is to be removed after patient has worked with physical therapy. Instructed patient that physical therapy will be in to work with him today. Continue to encourage patient to use incentive spirometer. Objective - Vital Signs Vital signs: Vital Signs Temp 98 F 12/24/22 02:28 Pulse 72 12/24/22 02:28 Resp 20 12/24/22 02:28 BP 186/96 12/24/22 02:28 Pulse Ox 98 12/24/22 02:28 FiO2 Intake & Output 12/23/22 12/24/22 12/24/22 18:59 06:59 18:59 Intake Total 2530 Output Total 500 1000 Balance 2030 -1000 Weight 80.74 kg Intake: IV 0 Oral 480 Output: Urine 400 1000 Estimated Blood Loss 100 Other: Voiding Method Indwelling Catheter - Exam Inspection: Surgical incision to the left lateral and paralumbar spine. Dressings are clean dry and intact, no shadowing noted. Sensation: Sensation is equal, symmetric, bilaterally intact throughout the uppe r and lower extremities Palpation: Nontender to palpation throughout bilateral upper and lower extr emities and throughout spine exam Range of motion: Patient does have full range of motion bilateral upper on exam, limited range of motion to the lower extremities due to pain and stiffness from surgical procedure Motor: 5/5 in all major motor groups in the bilateral upper and 4/5 in the lower extremities Special tests: Negative Homans bilaterally. Negative Tylor bilaterally. Negative clonus bilaterally. Neurovascular: Radial pulse intact, 2+ bilaterally. Cap refill under 3 seconds in digits upper extremities. - Labs CBC & Chem 7: 12/24/22 06:30 12/23/22 23:12 Labs: Abnormal Lab Results - Last 24 Hours (Table) 12/23/22 12/23/22 12/24/22 Range/Units 09:25 23:12 06:30 WBC 16.2 H (3.8-10.6) k/uL Neutrophils # 13.5 H (1.3-7.7) k/uL Monocytes # 1.2 H (0-1.0) k/uL Sodium 133 L (137-145) mmol/L Carbon Dioxide 21 L (22-30) mmol/L Glucose 163 H (74-99) mg/dL Total Bilirubin 1.4 H (0.2-1.3) mg/dL Assessment and Plan Assessment: Postop day 1: Stage I L2-L3 lateral interbody fusion, Stage II posterior decompression and fusion stabilization 1. L2-3 lumbar spondylosis with stenosis 2. Right lower extremity radiculopathy 3. Right lower extremity weakness 4. L5-S2 spondylosis 5. Right hip osteoarthritis Plan: -Appreciate underwriting consultant and team management. -Activity: Ambulate QID, OOB all meals, up and about, limit lifting bending twisting to less than 5 lbs. Use walker or cane if needed for stability. -Daily PT/OT, increase ambulation strength and balance. -Pain control: Adequate at this time -Meds: reviewed -GI ppx: senna, Miralax -DC wong after evaluation with PT today. -DVT PPX: OK to restart Heparin tonight -Hygiene: Shower today. Maintain dressing clean and dry. Meticulous cleaning after BMs away from the incision site -Encourage IS 10x/hr -Dispo: Anticipate discharge home tomorrow with homecare *I reviewed and discussed this case with my attending Dr. Yoo, whom has reviewed this chart and films and is in agreement with assessment and plan of care as outlined above. I have personally seen and examined the patient, performed the documentation and the assessment and plan as written. Number of minutes spent on the visit: [ ].
[2022-12-24] MEDS ORDERED: NON FORMULARY DRUG (Vitamin B Complex [Vitamin B Complex] 1 EACH Capsule) PO SCH (09:00)
[2022-12-24] MEDS: CHOLECALCIFEROL 25 MCG (1000 IU) TABLET PO SCH (09:26)
[2022-12-24] MEDS: LOSARTAN 50 MG TAB PO SCH ×2 (09:26→20:10)
[2022-12-24] MEDS: HYDROcodone/APAP 7.5-325MG 1 EACH TAB PO SCH ×5 (10:09→23:48)
--- NOTE | 2022-12-24 11:31 | P.PN ---
Subjective Progress Note Date: 12/24/22 Subjective: Patient seen and examined at bedside. No acute events overnight. Continues to have significant back pain. Lora catheter in place. Pertinent positives and negatives as discussed above, a complete review of systems was performed and all other systems are negative. Vitals Signs Reviewed. General: nontoxic, no distress, appears at stated age Derm: warm, dry, lumbar dressing not observed Head: atraumati, normocephalic, symmetric Eyes: EOMI, no lid lag, anicteric sclera Mouth: no lip lesion, mucus membranes moist Cardiovascular: S1S2 reg, no murmur Lungs: CTA bilateral, no rhonchi, no rales , no accessory muscle use Abdominal: soft, nontender to palpation, no guarding, no appreciable organomegaly Ext: no gross muscle atrophy, no edema, no contractures Neuro: CN II-XI grossly intact, no focal neuro deficits Psych: Alert, oriented, appropriate affect Data Reviewed Today: Pertinent Labs: WBC 16.2, sodium 133, creatinine 0.76 Imaging: No new imaging Assessment and Plan: Status post lumbar surgery Hypertension, uncontrolled Dyslipidemia Leukocytosis, anticipated upcoming surgery Mild hyponatremia, likely in the setting of pain -Increase losartan to 50 mg twice a day -Blood pressure likely also increase in the setting of worsening pain -Continue atorvastatin -On oral [place], IV Dilaudid for pain -Orthopedic surgery note reviewed, likely discharge home with home care tomorrow Thank you for allowing us to participate in the care of this pleasant patient. Do not hesitate to contact us with questions. Someone can be reached from the [facility] hospitalist group all hours of the day at [phone] or via [employer]. Objective - Vital Signs Vital signs: Vital Signs Temp 98.6 F 12/24/22 07:05 Pulse 67 12/24/22 07:05 Resp 17 12/24/22 07:05 BP 186/97 12/24/22 07:05 Pulse Ox 97 12/24/22 07:05 FiO2 Intake & Output 12/23/22 12/24/22 12/24/22 18:59 06:59 18:59 Intake Total 2530 Output Total 500 1000 Balance 2029 -1000 Weight 80.74 kg Intake: IV 0 Oral 480 Output: Urine 400 1000 Estimated Blood Loss 100 Other: Voiding Method Indwelling Catheter Indwelling Catheter - Labs CBC & Chem 7: 12/24/22 06:30 12/23/22 23:12 Labs: Abnormal Lab Results - Last 24 Hours (Table) 12/23/22 12/24/22 Range/Units 23:12 06:30 WBC 16.2 H (3.8-10.6) k/uL Neutrophils # 13.5 H (1.3-7.7) k/uL Monocytes # 1.2 H (0-1.0) k/uL Sodium 133 L (137-145) mmol/L Carbon Dioxide 21 L (22-30) mmol/L Glucose 163 H (74-99) mg/dL
[2022-12-24] MEDS: LACTATED RINGERS 1,000 ML IV SCH (11:58)
[2022-12-24] MEDS: FAMOTIDINE 20 MG TAB PO SCH (20:10)
[2022-12-24] MEDS: ATORVASTATIN 10 MG TAB PO SCH (20:10)
[2022-12-24] MEDS: LORATADINE 10 MG TAB PO SCH (20:10)
[2022-12-24] MEDS: HEPARIN SODIUM,PORCINE 5,000 UNIT/ML 1 ML VIAL SQ SCH (20:11)
[2022-12-25] MEDS: HYDROcodone/APAP 7.5-325MG 1 EACH TAB PO SCH ×2 (04:19→07:59)
[2022-12-25] MEDS: CYCLOBENZAPRINE 5 MG TAB PO PRN (04:22)
[2022-12-25] MEDS: ONDANSETRON 4 MG/2 ML VIAL IVP PRN (06:05)
[2022-12-25] MEDS: HYDROcodone/APAP 10-325MG 1 EACH TAB PO PRN (06:05)
--- NOTE | 2022-12-25 07:33 | P.PN ---
Subjective Progress Note Date: 12/25/22 Principal diagnosis: 1. L2-3 lumbar spondylosis with stenosis 2. Right lower extremity radiculopathy 3. Right lower extremity weakness 4. L5-S2 spondylosis 5. Right hip osteoarthritis Patient seen and examined this morning. Patient is resting comfortably in bed. He continues to report pain and burning to the left lateral incision and nausea. Surgical incision to the left lateral and paralumbar spine have been changed thi s morning. Left lateral incision, edges are well approximated with glue intact. Paralumbar incisions are well approximated with sebastián intact, no active drainage. Patient states he did work with PT yesterday and tolerated activity well, although increased pain with activity. Encouraged patient to continue to utilize ice packs. He reports he is urinating without difficulty and has been passing gas, no BM. Patient states he feels he is comfortable going home today with homecare. Objective - Vital Signs Vital signs: Vital Signs Temp 98.3 F 12/25/22 00:40 Pulse 84 12/25/22 00:40 Resp 16 12/25/22 00:40 BP 152/80 12/25/22 00:40 Pulse Ox 95 12/25/22 00:40 FiO2 Intake & Output 12/24/22 12/25/22 12/25/22 18:59 06:59 18:59 Output Total 1700 200 Balance -1700 -200 Output: Urine 1700 200 Uretheral (Lora) 700 Other: Voiding Method Indwelling Catheter Toilet Urinal - Exam Inspection: Surgical incision to the left lateral and paralumbar spine. Dressings have been changed this morning 12/25/2022. Left lateral incision is well approximated with glue intact. Paralumbar incisions are well approximated with sebastián intact, no active drainage. Sensation: Sensation is equal, symmetric, bilaterally intact throughout the upper and lower extremities Palpation: Nontender to palpation throughout bilateral upper and lower extremities and throughout spine exam Range of motion: Patient does have full range of motion bilateral upper on exam, limited range of motion to the lower extremities due to pain and stiffness from surgical procedure Motor: 5/5 in all major motor groups in the bilateral upper and 4/5 in the lower extremities Special tests: Negative Homans bilaterally. Negative Tylor bilaterally. Negative clonus bilaterally. Neurovascular: Radial pulse intact, 2+ bilaterally. Cap refill under 3 seconds in digits upper extremities. - Labs CBC & Chem 7: 12/24/22 06:30 12/23/22 23:12 Labs: Abnormal Lab Results - Last 24 Hours (Table) 12/24/22 Range/Units 06:30 WBC 16.2 H (3.8-10.6) k/uL Neutrophils # 13.5 H (1.3-7.7) k/uL Monocytes # 1.2 H (0-1.0) k/uL Assessment and Plan Assessment: Postop day 2: Stage I L2-L3 lateral interbody fusion, Stage II posterior decompression and fusion stabilization 1. L2-3 lumbar spondylosis with stenosis 2. Right lower extremity radiculopathy 3. Right lower extremity weakness 4. L5-S2 spondylosis 5. Right hip osteoarthritis Plan: -Appreciate hearing consultant and team management. -Activity: Ambulate QID, OOB all meals, up and about, limit lifting bending twisting to less than 5 lbs. Use walker or cane if needed for stability. -Daily PT/OT, increase ambulation strength and balance. -Pain control: Adequate at this time -Meds: reviewed -GI ppx: senna, Miralax -DVT PPX: Heparin -Hygiene: Shower today. Maintain dressing clean and dry. Meticulous cleaning after BMs away from the incision site -Encourage IS 10x/hr -Dispo: Discharge home today with homecare *I reviewed and discussed this case with my attending Dr. Yoo, whom has reviewed this chart and films and is in agreement with assessment and plan of c are as outlined above. I have personally seen and examined the patient, performed the documentation and the assessment and plan as written. Number of minutes spent on the visit: 20.
--- NOTE | 2022-12-25 07:43 | P.DS ---
Providers Date of admission: 12/23/22 08:09 Expected date of discharge: 12/25/22 Attending physician: Kun Yoo DO Consults: 12/23/22 14:06 Consult Physician Routine Consulting Provider: Kimberly Brady Consult Reason/Comments: Medical management Do you want consulting provider notified?: Yes Primary care physician: Maria Luisa L [facility] Course: Hospital Course: The patient was evaluated preoperatively and found to have the diagnosis of lumbar spondylosis. They underwent appropriate preoperative care and were willing to undergo the intended procedure. They underwent a successful Postop day 1: Stage I L2-L3 lateral interbody fusion, Stage II posterior decompression and fusion stabilization, were recovered appropriately and sent to the floor. While on the floor they worked with physical therapy, occupational therapy and nursing to enhance their recovery experience. Their pain was well controlled through their stay and they were started on appropriate medications, DVT ppx modalities, activity and dietary needs. Daily labs were monitored closely, and transfusions were only used when necessary. Medicine as well as other consulting services have made their input and have helped with our team approach and multidisciplinary care. PT milestones have been met and passed and they have made the recommendation of home with home care for this patient and treating providers agree with this care path. The patient will be discharged home with appropriate medications, instructions and follow-up information and in stable condition. Patient Condition at Discharge: Good Plan - Discharge Summary Discharge Rx Participant: Yes New Discharge Prescriptions: New cefaDROXiL [Duricef] 500 mg PO Q12HR #10 cap Cyclobenzaprine [Flexeril] 5 mg PO TID #60 tablet HYDROcodone/APAP 7.5-325MG [Pike 7.5] 1 each PO Q4HR PRN #56 tab PRN Reason: Pain Sennosides/Docusate Sodium [Senna Plus 8.6-50 mg Softgel] 1 each PO DAILY PRN #20 capsule PRN Reason: Constipation Ondansetron [Zofran] 4 mg PO Q8HR PRN #20 tab PRN Reason: Nausea No Action Vit C/E/Zn/Coppr/Lutein/Zeaxan [Preservision Areds 2 Softgel] 2 cap PO DAILY Famotidine 40 mg PO HS Cholecalciferol [Vitamin D3 (25 Mcg = 1000 Iu)] 2,000 unit PO DAILY Glucosam/Jamir-Msm1/C/Kahlil/Bosw [Cywofxuohnt-Nawwvunktdc-KXZ Tb] 2 tab PO DAILY Losartan [Cozaar] 25 mg PO BID Atorvastatin [Lipitor] 10 mg PO HS Vitamin B Complex 1 each PO DAILY Turmeric Root Extract [Turmeric] 500 mg PO DAILY Loratadine [Claritin] 10 mg PO HS Alpha Lipoic Acid 600 mg PO DAILY Nf-Magnesium Glycinate 2 tab PO DAILY Garlic 1,000 mg PO DAILY Discharge Medication List Cholecalciferol [Vitamin D3 (25 Mcg = 1000 Iu)] 2,000 unit PO DAILY 03/21/20 [History] Famotidine 40 mg PO HS 03/21/20 [History] Glucosam/Jamir-Msm1/C/Kahlil/Bosw [Nxgwmckmeza-Fblnkczfxvn-MZG Tb] 2 tab PO DAILY 03/21/20 [History] Vit C/E/Zn/Coppr/Lutein/Zeaxan [Preservision Areds 2 Softgel] 2 cap PO DAILY 03/21/20 [History] Loratadine [Claritin] 10 mg PO HS 11/13/20 [History] Alpha Lipoic Acid 600 mg PO DAILY 08/26/22 [History] Atorvastatin [Lipitor] 10 mg PO HS 08/26/22 [History] Losartan [Cozaar] 25 mg PO BID 08/26/22 [History] Turmeric Root Extract [Turmeric] 500 mg PO DAILY 10/15/22 [History] Vitamin B Complex 1 each PO DAILY 10/15/22 [History] Garlic 1,000 mg PO DAILY 12/19/22 [History] Nf-Magnesium Glycinate 2 tab PO DAILY 12/19/22 [History] Cyclobenzaprine [Flexeril] 5 mg PO TID #60 tablet 12/25/22 [Rx] HYDROcodone/APAP 7.5-325MG [Pike 7.5] 1 each PO Q4HR PRN #56 tab 12/25/22 [Rx] Ondansetron [Zofran] 4 mg PO Q8HR PRN #20 tab 12/25/22 [Rx] Sennosides/Docusate Sodium [Senna Plus 8.6-50 mg Softgel] 1 each PO DAILY PRN #20 capsule 12/25/22 [Rx] cefaDROXiL [Duricef] 500 mg PO Q12HR #10 cap 12/25/22 [Rx] Follow up Appointment(s)/Referral(s): Francoise Ledezma [NON-STAFF] - As Needed Kun Yoo DO [Doctor of Osteopathic Medicine] - 01/07/23 10:45 am Activity/Diet/Wound Care/Special Instructions: Spine Discharge and Recovery Instructions Date of Surgery: 12/23/2022 Diagnosis: Lumbar spondylosis Procedure: Stage I: L2-L3 Lateral interbody fusion, Stage II: Posterior decompression and fusion with stabilization Medications: See medication list All medication refills should be obtained through your primary care doctor or your clinic spine surgeon. Please discuss prescription refills at your follow up appointment. Do not call the hospital for medication refills. Dressing: Leave your dressing in place for a total of 5 days post operatively. Then you may remove your dressing and leave open to air. Keep the area clean and if not able to keep area clean, then cover with sterile gauze and tape. Showering: You may shower 3 days after your procedure allowing soap and water to run over incision. Do not scrub. Do not soak. Blot dry. Follow up: Please confirm a follow up appointment with your surgeon 3 weeks post operatively. Please make an appointment to follow up with your PCP in 1-2 weeks after surgery for evaluation 3 phase, 3-week plan POST OP WEEKS 1-3 1. Lifting/carrying/pushing/pulling limited to less than 5 pounds. 2. Do not sit for longer than 15 minutes at one time. Get up and walk around. Prolonged sitting is NOT advised. If you lay down, see if you can tolerate laying down on you front (belly side) 3. Walk for periods of 15 minutes = 1 mile but no longer; do it multiple times times each day. 4. Ice your low back after activity. POST OP WEEKS 3-6 1. Lifting limited to less than 20 pounds. 2. Do not sit for longer than 30 minutes at a time. Frequently change positions. Use a sit-to stand workstation or take frequent breaks from sitting if you have returned to work. 3. Walk for 30 minutes each day. If possible, do these three or more times a day POST OP WEEKS 6+ At your 6-week appointment we will give you a physical therapy referral to focus on a core stabilization and strengthening program. You should also work on leg & buttock strengthening, hamstring & quadriceps stretching, and continue a low impact aerobic activity program such as swimming, walking, or riding a stationary bicycle. During the initial 6 weeks after your surgery, you are at the highest risk of re-injuring your spine. You should generally avoid BLTs (bending, lifting and twisting combination motions) and follow the above guidelines to reduce the chance of reinjury. You can anticipate post op appointments in our office at approximately 3 weeks and 6 weeks after your surgery. INCISION CARE: If your incision is not draining you do NOT need to cover it with a dressing. Keep your incision clean, dry and intact. In most cases, we apply skin glue, sebastián or sutures to the incision at the time of surgery. This will be like a crust or have the appearance of a scab and will fall off in time on its own. The stitches or sebastián need to be removed at 3 weeks post op appointment. You may begin to shower 3 days after surgery (this allows the glue to armstrong well). However, please avoid scrubbing the incision site or peeling off any of the skin glue. This will ensure optimal healing of your incision. Also, during this time avoid soaking the incision area in water - this includes swimming pools, hot tubs or baths. No ointments, lotions or oils on the incision until your surgeon allows. Leave sebastián, sutures or glue in place. Neurological dysfunction that comes on suddenly can also be a sign of a stroke. Below some common symptoms of a stroke are listed: B - balance difficulty such as sudden onset walking or leaning to one side - NEW E - eye problem such as sudden double vision or trouble seeing on one side - NEW F - Facial weakness or numbness on one side - NEW A - Arm or leg weakness or numbness on one side - NEW S - Slurred speech or difficulty with word finding - NEW T - Time is BRAIN! Call 911 as soon as you recognize these symptoms Diet: Consume a regular diet rich in vegetables and lean protein such as chicken or fish. You should consume in a ratio of approximately 20% fats|40% carbohydrates|40%protein. Vegetables, sweet potatoes, brown rice or quinoa are examples of good carbohydrates. Chips, white bread, cookies and sweets/sugar are examples of bad carbohydrates. Limit your bad carbs, go wild with good carbs. 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 (1) Get Active. Physical activity can help people lose weight, control high blood pressure and cholesterol, feel emotionally better, and sleep better. (2) Control Cholesterol. Avoid a diet high in saturated fat, trans fat, & cholesterol. Limit whole milk & cream, ice cream, butter, egg yolks, processed meats (like sausage and hot dogs), and fatty meats. Choose healthy foods that are low in saturated fat, trans fat and cholesterol which include: Fruits and vegetables, fiber rich grain products (like whole grain pasta and brown rice), lean meat such as chicken, fish, nuts, seeds, and legumes. (3) Eat Better. Eat small portions. Shop at the grocery with a list and do no t stray from it. Tips for a healthy diet include: Limit sodium intake to less than 1500mg daily, avoid prepackaged, processed, and fast foods, choose a diet rich in fruits, vegetables, and whole grain, high fiber foods, and limit saturated & cholesterol in your diet. (4) Manage Blood Pressure. If you have high blood pressure, you should have a cuff at home so that you can check your blood pressure regularly. Be sure you have a good cuff. An arm one is generally better than a wrist one. Bring the cuff to a doctor's appointment to validate that the measurements that your cuff are taking are accurate. Take your blood pressure twice daily when you are sitting down and relaxing. Record the numbers in a log and bring this log with you to your doctors' appointments. (5) Lose Weight if your BMI is above 25. A healthy BMI is between 19-25. To calculate Your BMI, you may use a Standard BMI Calculator on the NIH BMI website: <www.nhlbi.nih.gov/guidelines/obesity/BMI/bmicalc.htm>. Weigh oneself daily. If you are overweight, set a goal to lose weight. A pound a week loss if needed is a good target. (6) Reduce Blood Sugar. Limit foods and liquids with "added sugars." (Added sugars include sucrose, fructose, glucose, maltose, dextrose, high fructose corn syrup, corn syrup, concentrated fruit juice and honey). (7) Stop Smoking. If you smoke, quitting smoking is one of the best things that you can do for your health. Smoking increases your risk of heart attack, stroke, and peripheral vascular disease, which is a build-up of plaque in your arteries. Please discard all the cigarettes and lighters in your house. Have a plan for what you will do when you have the urge to smoke. Direct and second- hand smoke shortens your life as well as the lives of your family, friends and others around you. For your health and the health of those around you, please consider quitting! Proper Bending Body Mechanics: Maintain a wide stance with one foot slightly in front of the other. Keep your back straight. Bend utilizing the strength in your hips and knees. Do not bend at the waist. Maintain the lifted object at your waist-level close to your body. Avoid lifting weight that causes immediately pain or pain anywhere in the body afterwards. Smoking/Nicotine If there was ever one thing that you could do to increase your overall health, decrease your risk of cardiovascular problems by about 39% the second you make the choice, it is to STOP SMOKING. Your body's most instant gratification is the second you stop smoking. We have all heard the studies, read the articles but it is true, smoking is extremely bad for your overall health, and moreover i t is detrimental to your bone health. Nicotine, IN ANY FORM, kills bone cells, prevents your body from healing fractures, and significantly prolongs healing after surgery. In spine surgery s pecifically, it increases your risk of not healing your bones to create a fusion and increases your risk of having a revision surgery due to this up to 60%. I know it is hard. I know it feels impossible. But there are ways. Take control of your life. We are here to help you through it. And when you are ready, ask us and we can direct you to help if you desire. Use the START Plan to Quit Smoking (please visit the Helpguide.org website listed below for more information): S = Set a quit date. Choose a date within the next 2 weeks, so you have enough time to prepare witho ut losing your motivation to quit. If you mainly smoke at work, quit on the weekend, so you have a few days to adjust to the change. T = Tell family, friends, and co-workers that you plan to quit. Let your friends and family in on your plan to quit smoking and tell them you need their support and encouragement to stop. Look for a quit cody who wants to stop smoking as well. You can help each other get through the rough times. A = Anticipate and plan for the challenges you'll face while quitting. Most people who begin smoking again do so within the first 3 months. You can help yourself make it through by preparing ahead for common challenges, such as nicotine withdrawal and cigarette cravings. R = Remove cigarettes and other tobacco products from your home, car, and work. Throw away all your cigarettes (no emergency pack!), lighters, ashtrays, and matches. Wash your clothes and freshen up anything that smells like smoke. Shampoo your car, clean your drapes and carpet, and steam your furniture. T = Talk to your doctor about getting help to quit. Your doctor can prescribe medication to help with withdrawal and suggest other alternatives. If you can't see a doctor, you can get many products over the counter at your local pharmacy or grocery store, including the nicotine patch, nicotine lozenges, and nicotine gum. Resources for Quitting Smoking: <h ttps://www.[place].gov/documents/[facility]/Quit_Tobacco_Resources_for_patients_31348 0_7.pdf> Supplementation: Take recommended dosages of Vitamin D and Calcium to help fortify your bones and help them to heal. See your health maintenance packet for dosages and recommended levels. DVT/VTE prophylaxis: You will be given compression stockings from the hospital. Wear these daily for the first two weeks after surgery. You may take them off at night. You may be prescribed a medication to help thin your blood. Take this as directed. If you are not prescribed this medication, early and frequent ambulation has been shown to be the best prophylaxis to deep vein thrombosis and sequelae related to this event. Discharge Disposition: HOME WITH HOME HEALTH SERVICES
[2022-12-25] MEDS: LOSARTAN 50 MG TAB PO SCH (08:04)
[2022-12-25] MEDS: HEPARIN SODIUM,PORCINE 5,000 UNIT/ML 1 ML VIAL SQ SCH (08:04)
[2022-12-25] MEDS: CHOLECALCIFEROL 25 MCG (1000 IU) TABLET PO SCH (08:04)
--- NOTE | 2022-12-25 10:52 | P.PN ---
Subjective Progress Note Date: 12/25/22 Subjective: Patient seen and examined at bedside. No acute events overnight. Continues to have significant back pain, but improving Pertinent positives and negatives as discussed above, a complete review of systems was performed and all other systems are negative. Vitals Signs Reviewed. General: nontoxic, no distress, appears at stated age Derm: warm, dry, lumbar dressing not observed Head: atraumati, normocephalic, symmetric Eyes: EOMI, no lid lag, anicteric sclera Mouth: no lip lesion, mucus membranes moist Cardiovascular: S1S2 reg, no murmur Lungs: CTA bilateral, no rhonchi, no rales , no accessory muscle use Abdominal: soft, nontender to palpation, no guarding, no appreciable organomegaly Ext: no gross muscle atrophy, no edema, no contractures Neuro: CN II-XI grossly intact, no focal neuro deficits Psych: Alert, oriented, appropriate affect Data Reviewed Today: Pertinent Labs: No new labs Imaging: No new imaging Assessment and Plan: Status post lumbar surgery Hypertension, uncontrolled Dyslipidemia Leukocytosis, anticipated upcoming surgery Mild hyponatremia, likely in the setting of pain -Continue increased losartan dose -Blood pressure likely also increase in the setting of worsening pain -Improved blood pressure -Continue atorvastatin -On oral Leslie, IV Dilaudid for pain -Orthopedic surgery discharge summary. Patient is medically optimized for discharge home. He will follow-up with PCP for further medication titration. Thank you for allowing us to participate in the care of this pleasant patient. Do not hesitate to contact us with questions. Someone can be reached from the [facility] hospitalist group all hours of the day at [phone] or via perfect serve. Objective - Vital Signs Vital signs: Vital Signs Temp 99.1 F 12/25/22 07:35 Pulse 80 12/25/22 07:35 Resp 18 12/25/22 07:35 BP 154/85 12/25/22 07:35 Pulse Ox 98 12/25/22 07:35 FiO2 Intake & Output 12/24/22 12/25/22 12/25/22 18:59 06:59 18:59 Output Total 1700 200 Balance -1700 -200 Output: Urine 1700 200 Uretheral (Lora) 700 Other: Voiding Method Indwelling Catheter Toilet Toilet Urinal Urinal - Labs CBC & Chem 7: 12/24/22 06:30 12/23/22 23:12
[2022-12-25 15:48] VITALS: BP 154/85; PULSE 80; RESP 18; TEMP 99.1
--- NOTE | 2022-12-27 11:48 | P.OP ---
Date of Procedure: 12/23/22 Preoperative Diagnosis: 1. L2-3 SEVERE SPONDYLOSIS 2. 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 LOW BACK PAIN 4. LE WEAKNESS 5. NEUROGENIC CLAUDICATION Postoperative Diagnosis: 1. L2-3 SEVERE SPONDYLOSIS 2. 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 LOW BACK PAIN 4. LE WEAKNESS 5. NEUROGENIC CLAUDICATION Procedure(s) Performed: PART I: 1. L2-3 LATERAL INTERBODY FUSION (87891) PART II: 1. POSTERIOLATERAL INSTRUMENTED FUSION L2-3 (24483) 2. INSTRUMENTATION L2-3 (89021) 3. USE OF cFares NAVIGATION FOR PLACEMENT OF SCREWS (15801) USE OF IONM ALL SCREWS TESTING ABOVE 20 MA NO EMG OF LUMBAR PLEXUS DURING LATERAL Implants: -LIFE SPINE LATERAL INTERBODY CAGE -RACQUEL EVEREST SCREW AND SHARDA SYSTEM -MAGNATOS, AUTOGRAFT Anesthesia: GETA Surgeon: Kun Yoo Oral Pathologist #1: Luda Philip (WAS PRESENT AND ASSISTED WITH ALL ASPECTS OF THE CASE FROM POSITION TO CLOSURE) Estimated Blood Loss (ml): 100 IV fluids (ml): 2,500 Urine output (ml): 450 Pathology: none sent Condition: stable Disposition: PACU Indications for Procedure: Mr. Lin is presenting for evaluation of low back pain. It was my pleasure to have seen and examined Mr. Lin. In our visit today we have had a chance to go over subjective complaints, physical examination findings and treatments including the natural course history without intervention and various interventional options. The patients imaging demonstrates: MRI scan from01/24/22 of [facility]: impression: 1. Straightening of the normal lumbar lordosis consistent with strain in the appropriate clinical circumstance versus secondary to compressive discopathy as described above. Recommend clinical correlation. 2. L2-3: 5 mm broad based disc herniation effaces the ventral surface of the thecal sac resulting in moderate bilateral neural foraminal encroachment and bilateral exiting L2 nerve impingement in conjunction with facet arthrosis. 3. L3-4: 4 mm broad-based disc herniation effaces the ventral surface of the thecal sac resulting in moderate to severe right and moderate left neural foraminal encroachment and bilateral exiting L3 nerve impingement in conjunction with facet arthrosis. The central canal is adequately patent. 4. L4-5: Posterior annular tear is seen within the intervertebral disc. 3-4 mm broad-based disc herniation effaces the ventral surface of the thecal sac resulting in moderate to severe bilateral neural foraminal encroachment and bilateral exiting L4 nerve impingement in conjunction with facet arthrosis. The central canal is adequately patent. 5. L5-S1: 2-3 mm broad-based disc herniation effaces the ventral surface of the thecal sac resulting in moderate to severe bilateral neural foraminal encroachment, left greater than right, and bilateral exiting L5 nerve impingement in conjunction with facet arthrosis. The central canal is adequately patent. On physical exam, Mr. Lin demonstrates: The patient reports experiencing a continued sharp, burning pain throughout the low back that radiates down into the right buttock, groin, and posterior aspect of the right lower extremity. The patient states that his lower extremity pain is associated with weakness, numbness, and tingling. He reports experiencing a significant increase in his symptoms over the last 2 to 3 weeks. The patient states that his pain is exacerbated by all activity, which makes it very difficult for him to complete any of his daily tasks. The patient reports experiencing moderate to severe sleep disturbances due to his ongoing pain and associated symptoms. The patient notes that his symptoms have started to become intolerable. I have explained to the patient that as their condition progresses it will cause further neurological deficits and eventual paralysis. Based on the patients imaging, physical exam, and the rapid progression and disabling nature of their symptoms, at this time I recommend surgery in the form of a: STAGE 1: L2-3 LATERAL INTERBODY FUSION AND STAGE 2: POSTERIOR DECOMPRESSION AND FUSION STABILIZATION. I discussed the risk and benefits of this procedure at length with Mr. Lin. The patient and significant other in the room agreed to considered pursuing the procedure above mentioned. Prior to surgery, she should follow up with her PCP (Cardio, ID, IM etc) for clearance. Questions were invited and answered, and the patient wishes to proceed as outlined below. Currently, I am recommendin. STAGE 1: L2-3 LATERAL INTERBODY FUSION AND STAGE 2: POSTERIOR DECOMPRESSION AND FUSION STABILIZATION. Description of Procedure: L2-3 lateral interbody fusion with posterolateral instrumented fusion (MADISYN) The patient was seen and examined in the preoperative area. All preoperative protocols were followed. Informed consent was obtained, risks and benefits of the procedure were discussed at length. Risks including bleeding infection damage to the surrounding tissue and risk of reoperation were discussed with the patient. Risk of anesthesia up to and including was discussed with the patient. These are outlined in the risk review. They were willing to accept these risks and all of the risks of surgery. The patient was given a weight- based dose of antibiotics in the form of 2 g Ancef. The patient was seen and evaluated by the anesthesia team who deemed them fit for surgery. The site was marked, the patient was willing to proceed with the procedure. The patient was transferred to the operative suite by the Department of anesthesia. They were then drifted off to sleep by the department anesthesia and GETA was performed. The patient tolerated this well. Lora catheter was placed by nursing staff, atraumatically. Once confirmation of lines and ventilation the patient was transferred to a flat [place] table and placed in the right lateral decubitus position. Axillary roll was placed. Hip Bump was placed. All bony prominences including wrists, elbows, axilla, chest, hips, and thighs, and feet were padded very well. Special attention was paid to the genitalia and these were padded accordingly. SCDs were placed on bilateral lower extremities and were connected. Arms were well padded and placed on armboard pillows. The patient was taped to the table and secured. Once in position, again we confirmed good ventilation capabilities and that lines were running appropriately. The patient's left lateral lumbar and flank was then exposed. 1010s were placed outlining the incision site. Standard alcohol was used to clean the incision site and allowed to dry. C-arm was used to biomark the patient and confirm level for incision which was marked with a skin marker. Operative briefing was performed with all teams and everyone in agreement to proceed. The patient was then prepped and draped in a normal sterile fashion. Timeout was then performed and all parties were in agreement with the procedure to be performed. Transverse skin incision was then made over the previously biomarker area and dissection taken down with EC to the external oblique fascia. This was then identified and two large sylvia clamps then used for blunt dissection through the external, internal and transverse abdominis inline with the level to be exposed. Once the transversalis fascia was identified the retroperitoneal space was entered bluntly and blunt dissection was used to sweep abdominal contents anteriorly. Retroperitoneal fat was identified and the psoas as well as TVP was palpated. Once this was identified a blunt probe was placed with the help of biplanar fluoroscopy at the L2-3 level. Once it was in good position in the posterior ? of the body and at the disc space, a wire was passed. IONM was used to stimulate the probes before at 2 and 5 mA with no responses in all 4 quadrants. Dilator was then placed over the probe and stimulated and there was no response again. Retractor blades were then chosen and retractor placed and secured in position and to the table. The blades were carefully then opened slightly and the IONM probe sent down all 4 quadrants again without any responses at 2, 5 and 10 mA. The retractor was then opened further for visualization and the dilators and wire removed. Disc space was visible and a combination of bipolar and EC were used to clean margins and identify disc. Once it was identified, rongeur was used to remove outer osteophytes. A osteotome was then used to pass through the disc space under fluoroscopic guidance once this was passed a Gordillo was then passed in a similar fashion through to the opposite side to release the osteophytes on this side as well. Once these were released sequential box osteotomes were passed in a similar fashion until the disc had been completely removed. Good bleeding endplates were noted. Pituitary was used to remove any floating or excess fragments. The trial was then placed and sized. The disc space was irrigated. A 55 mm x 22 mm 8-16 mm expandable lateral leg spine cage was then selected and placed under fluoroscopic guidance. The cages then expanded to its desired height, reducing a and restoring disc space height and lordosis and alignment. The cage was backfilled with MagnatOs. The director global development was then removed and the area inspected. No injury was evident, minimal bleeding was cauterized and AP and Lateral images confirmed good placement of cage. The retractor was then removed under direct visualization at 18 min in the psoas. The wound was copiously irrigated with NSS. The deep fascia was then closed with 0 Vicryl superficial closed with 2-0 Vicryl and the skin was closed with a 3-0 running strata fix Monocryl. Skin glue was then placed after it was cleaned it was then dressed sterilely with an operative foam dressing. The patient was transferred back to their hospital bed atraumatically and the beds were flipped for the second stage posteriorly. Pt was then positioned prone on a [employer] spine top table. All bony prominences including wrists, elbows, axilla, chest, hips, and thighs, and feet were padded very well. Special attention was paid to the genitalia and these were padded accordingly. SCDs were placed on bilateral lower extremities and were connected. Arms were well padded and placed on armboard pillows. The patient was taped to the table and secured. Once in position, again we confirmed good ventilation capabilities and that lines were running appropriately. The patient's left lateral lumbar and flank was then exposed. 1010s were placed outlining the incision site. Standard alcohol was used to clean the incision site and allowed to dry. C-arm was used to biomark the patient and confirm level for incision which was marked with a skin marker. Operative briefing was performed with all teams and everyone in agreement to proceed. The patient was then prepped and draped in a normal sterile fashion. Timeout was then performed and all parties were in agreement with the procedure to be performed. Skin nicks were then made over the PSIS on the Right side and pins placed for the [employer] Navigation tracker system. This was then secured. A 3D Ziehm spin was then obtained and registered. Once it was confirmed to be accurate, pedicles were targeted through bilateral skin incisions over L2 and L3. Navigated Jamshidi was used to plan screws followed by a navigated drill bit. Once drilled a wire was placed in the pedicle and they were all confirmed to be in good position on AP and Lateral imaging. Screws were then placed over the wires using lateral imaging. Once in position screws were tested and all tested above 20 mA. Rods were then selected and bent appropriately. Posterolateral gutters were decorticated with a high speed vitaliy and Ventris bio placed in the PL gutters for fusion. Rods were then placed through tulip heads, subfascial and secured with set screws. Set screws were then finally tightened. Tabs were broken off. AP and Lateral imaging confirmed good placement of screws with reduction of height, lordosis and alignment. Wounds were copiously irrigated with NSS. Local anesthetic is placed remote to the incision for the block. The deep fascia was closed with 0 vicryl. Superficial closed with 2-0 Vicryl and skin closed with sebastián. Wound edges approximated very well. Wounds were then cleaned and dressed sterilly with optifoam dressing. The patient was then transferred to their hospital bed atraumatically. Patient was then awakened and extubated by the department of anesthesia having tolerated the procedure very well with no complications. They were transferred to the postoperative care unit in stable condition.
== END 2022-12-25 11:58 | disposition home health service (06) | DRG 454 ==
LOC: 2ORMAIN 08:09 → 4SSUR 16:11
PROVIDERS: ADMIT Orthopaedic Surgery; ATTEND Orthopaedic Surgery
PROC: 0SG0071 Fusion of Lumbar Vertebral Joint with Autologous Tissue Substitute, Posterior Approach, Posterior Column, Open Approach (ICD-10-PCS; 2022-12-23)
PROC: 8E0WXBZ Computer Assisted Procedure of Trunk Region (ICD-10-PCS; 2022-12-23)
PROC: 0SG00AJ Fusion of Lumbar Vertebral Joint with Interbody Fusion Device, Posterior Approach, Anterior Column, Open Approach (ICD-10-PCS; principal; 2022-12-23 09:45)
DX: M47.26 Other spondylosis with radiculopathy, lumbar region (principal); E87.1 Hypo-osmolality and hyponatremia; I10 Essential (primary) hypertension; M48.062 Spinal stenosis, lumbar region with neurogenic claudication; M47.27 Other spondylosis with radiculopathy, lumbosacral region; M48.07 Spinal stenosis, lumbosacral region; M40.56 Lordosis, unspecified, lumbar region; M51.26 Other intervertebral disc displacement, lumbar region; G47.9 Sleep disorder, unspecified; E78.5 Hyperlipidemia, unspecified; R11.0 Nausea; Z96.642 Presence of left artificial hip joint; Z79.899 Other long term (current) drug therapy; Z87.891 Personal history of nicotine dependence
CPT/HCPCS: 72100; 72131; 80048; 80053; 85025; 85610; 86850; 86900; 86901

== ENCOUNTER → 2023-07-02 | Outpatient (CLI) | payer MEDICARE, BC ==
--- NOTE | 2023-07-03 09:44 | CT ---
EXAMINATION TYPE: CT lumbar spine wo con DATE OF EXAM: 07/02/2023 4:18 PM COMPARISON: 12/23/2022 HISTORY: post op pain CT DLP: 2121.4 mGycm Automated exposure control for dose reduction was used. Unenhanced CT of the lumbar spine was performed. Bone and soft tissue window settings are submitted as well as coronal and sagittal reconstructions. Findings: There are stable postsurgical changes of metallic interdisc fusion at the L2-3 level. The lumbar vertebral segments are normal in height and alignment. No fracture or subluxation. There is mild anterior spondylosis and mild disc space narrowing at the L3-4 and L4-5 levels indicati ng mild degenerative disease. There is been no interval change compared to previous. Secondary to mild disc bulge and thickening of ligamentum flavum, there is a stable mild spinal steno sis at the L4-5 level. There is moderate facet arthropathy at the L5-S1 level. The sacrum and SI joints are normal. There is no bony encroachment of the neural foramina. IMPRESSION: 1. Stable postsurgical changes of posterior metallic and intradiscal fusion at the L2-3 level. 2. Mild degenerative disc disease at the L3-4, L4-5 levels. 3. Probable stable mild spinal stenosis at the L4-5 level. 4. Stable moderate facet arthropathy at the L5-S1 level. 5 although limited by the technique,, there is no gross or large disc herniation.
== END | disposition home or self-care (01) ==
LOC: RADCTMAIN 15:46
PROVIDERS: ATTEND Orthopaedic Surgery
DX: M47.27 Other spondylosis with radiculopathy, lumbosacral region (principal); M51.16 Intervertebral disc disorders with radiculopathy, lumbar region; G89.18 Other acute postprocedural pain; Z98.890 Other specified postprocedural states
CPT/HCPCS: 72131